=== PATIENT | male | born 1965 | race Caucasian/White ===

== ENCOUNTER 2023-10-19 09:13 | Outpatient (AMB) | payer BC, SELFPAY ==
--- NOTE | 2023-10-19 09:18 | AM.OFFWIN_ITS ---
Intake Vital Signs 10/19/23 09:19 Height 5 ft 11 in Weight 174 lb 4 oz BMI 24.3 BP 144/90 H Blood Pressure Location Lt brachial Position Sitting Pulse 87 Pulse Source Pulse Oximeter Temp 98.1 F Temp Source Temporal Artery Scan Pulse Oximetry (%) 97 Oxygen Delivery Method Room Air Intake Visit Reasons: Gastro issues Intake Note: Pt presents to the office today for c/o gastro concerns. Pt states he has had diarrhea for almost 6 weeks. Pt states he has about 7 bowel movements a day. He states he has had ulcers in the past. Pt states he had a colonoscopy about 2-3 years ago which he states came back normal. Pt denies any nausea or vomiting. Patient Tobacco Use Status: Current someday Tobacco user Allergies No Known Allergies Allergy (Verified 10/19/23 09:38) Medication List - Last Reconciled 10/19/23 by CALLY Hill- No Known Home Meds HPI HPI Comments History of Present Illness Details Diarrhea for 6 weeks, occurring about 7 x day This happened before in his 20's told of viral illness and cured on its own Nonbloody, no wt loss. Appetite normal. Colon 2-3 years ago. Not active with GI No vomiting, recent travel + stress Ab exposure - 1 time in the last year Abd feels uncomfortable Normal urination Denies fever, chills. etoh daily denies changes in etoh intake [employer] [facility] Social History Patient Tobacco Use Status: Current someday Tobacco user Review of Systems Const All systems reviewed & are unremarkable except as noted in HPI and below Physical Exam Vital Signs: Last Vital Signs Temp 98.1 F 10/19/23 09:19 Pulse 87 10/19/23 09:19 BP 144/90 H 10/19/23 09:19 Pulse Ox 97 10/19/23 09:19 Oxygen Delivery Method Room Air 10/19/23 09:19 BMI result Body Mass Index 24.3 Const Other: Awake alert oriented nontoxic Scleras nonicteric bilat Mucous membranes moist Abdomen soft, mildly tender to right lower quadrant without rebound, no hepatosplenomegaly, normoactive bowel sounds Assessment & Plan Assessment & Plan (1) Diarrhea: Code(s): R19.7 - Diarrhea, unspecified Qualifiers: Diarrhea type: unspecified type Plan: This note is constructed using voice recognition software. While every effort has been made to ensure accuracy in [employer], still errors may have been included Sometimes, these errors may affect the content or meaning of the given sentence . Total time spent caring for the patient today was 40 minutes. This includes time spent before the visit reviewing the chart, time spent during the visit, and time spent after the visit on documentation Orders: Orders Lipase Today R19.7 - Diarrhea, unspecified H pylori Ag Stool Today R19.7 - Diarrhea, unspecified CDiff Gene PCR Today R19.7 - Diarrhea, unspecified Comprehensive Met. Panel Today R19.7 - Diarrhea, unspecified Amylase Today R19.7 - Diarrhea, unspecified Patient Instructions: Plan: Check labs today (as of 1535 stool samples pending, normal lipase, amylase, elevated AST/ALT, Bili otherwise normal CMP). Stool samples ordered. If workup negative recommend using [id number] antidiarrheal and following up with primary care. If any of the labs are abnormal or positive will treat as appropriate. Encouraged to hydrate well and include a diet that is rich in sodium and potassium until results are back. Walk-In Care (Urgent Care): We Make it Easy Walk-in for urgent medical issues such as: ? Seasonal Allergies ? Insect Bites ? Cough ? Diarrhea ? Acute Asthma Attacks ? Back, Knee or Joint Pain ? Ear Infection ? Fever without a Rash ? Headaches ? Nausea ? [place], Rash or Skin Irritation ? Sore Throat ? Sports Physicals ? Vomiting Most insurances are accepted. Patients do not need to be part of the [facility] to seek care at the walk-in clinic. Locations [facility] , [place] [address] ? [phone] [facility] Walk-In Care in [place] provides services to ages 18 and over. Open Thursday-Thursday: 8 a.m. to 5 p.m. and Thursday: 9 a.m. to 3 p.m.* *Hours may vary due to staffing availability. To confirm Walk-In Care hours in [place], please call [phone]. [address] [facility], [place] [address] ? [phone] [facility] in [place] provides services to ages 12 and over. Open Thursday-Thursday: 8 a.m. to 5 p.m. Hours may vary due to staffing availability. To confirm Walk-In Care hours in [place], please call [phone]. LABORATORY SERVICES: [facility] ? Primary Location [address] [place] [address] Thursday through Thursday 6:00 AM ? 5:00 PM Thursday 7:00 AM ? 11:00 AM* [phone] The [facility] is centrally located near the front entrance of the [facility] for easy outpatient access. Convenient parking is provided for outpatients. *Hours may vary due to staffing availability. To confirm Laboratory hours for any location, please call [phone]. Offsite Location For your convenience, we offer offsite laboratory draw stations at the following locations: [address] [place] [address] ? [address], [address] Thursday through Thursday 7:30 AM ? 1:00 PM* [phone] *Hours may vary due to staffing availability. To confirm Laboratory hours for any location, please call [phone]. [place] ? [address] Thursday through Thursday 6:00 AM ? 3:30 PM* Thursday 6:30 AM ? 3 PM* [phone] *Hours may vary due to staffing availability. To confirm Laboratory hours for any location, please call [phone] [place] [address] Thursday through Thursday 7:30 AM ? 4:00 PM* [phone] *Hours may vary due to staffing availability. To confirm Laboratory hours for any location, please call [phone] [place] [address] Thursday through 9:00 AM ? 4:00 PM* *Hours may vary due to staffing availability. To confirm Laboratory hours for any location, please call [phone]. Appointments are not necessary. Walk-ins are welcome. Like all the departments throughout the [facility], our Lab undergoes frequent reviews to ensure the quality and accuracy of test results, and our staff takes special pride in its status as a nationally accredited facility. Patient Portal: ONE PATIENT. ONE RECORD. BETTER CARE. [facility] has a fully integrated, cutting- edge mobile electronic health information system that has revolutionized the way we care for our patients and manage our organization. This system improves communication and coordination enabling us to provide safe, higher-quality care, and an overall positive experience for staff and patients. Our first priority, as always, is to deliver the highest quality care possible. The system is running in the background supporting that priority. This portal is for all [facility] services and practices. If you are experiencing any technical difficulties with enrolling or logging into the Patient Portal please complete the [facility] Patient Portal Technical Support Form. [facility] now offers a new secure on-line interactive tool for patients to review their health information ? ?Patient Portal. This interactive web portal will enable patients and their families to take an active role in their care by providing easy, secure access to their health information via the internet. The Patient Portal provides patients with instant access to their health information, including laboratory results, medications, allergies, demographic information, visit history, and more. In addition to managing their own care, parents and health care proxies with authorized consent will appreciate the ability to access the records of those individuals for whom they provide care. Please note: if you wish to gain access (Proxy) to another patient?s portal, you will be required to come to the Medical Records Department in person at [facility]. Both the patient giving proxy access and the proxy will need to provide photo identification and complete the appropriate authorization. The Patient Portal also allows track their appointments online. The [facility] Patient Portal also saves patients time by allowing them to submit updates to their demographic and contact information prior to their visits. Portal email notifications will also alert patients to any new activity on their portal, such as test results and new appointments. In order to initially enroll in the [facility] Patient Portal, you will need to enter some required information including the following: * your [facility] Medical Record number * your personal home email address * name * date of Please note: In order to enroll in the [facility] Patient Portal, we need to have your email address on file in your electronic medical record. ?The email address needs to be specific for one person (yourself) in order for your Portal enrollment to be successful. ?You can update your email address in person with our Registration staff when you are registering for a hospital visit. ?Otherwise, you will need to come to the Health Information Management (Medical Records) Department at [facility]. ?We are open from Thursday ? Thursday from 7:30 a.m. ? 4:30 p.m. ?You will be required to present a photo id. Once you have successfully enrolled in the Patient Portal, you will receive a one-time user id and password for the Portal, sent to your email address. ?This will allow you to log into the Patient Portal within 99 hrs and reset your own logon id and password, and define personal security questions. ?Once your permanent login and password have been set, you can log into the [facility] Patient Portal at any time via the blue button above or from the Portal Logon button on any page of the [facility] website. [facility] and [facility] encourage all of our patients to enroll in Patient Portal as it presents a valuable opportunity for patients and their families to actively participate in their care and stay healthy Welcome to [facility]. ?We look forward to working with you. Coding Level of Care Code Est Pt Level 5 (66620) Diagnoses Diarrhea R19.7 Diarrhea type: unspecified type
[2023-10-19 09:19] VITALS: BP 144/90; PULSE 87; TEMP 36.7; O2SAT 97; BMI 24.3
== END 2023-10-19 09:48 | disposition home or self-care (01) ==
PROVIDERS: Visit Provider Nurse Practitioner Family
DX: R19.7 Diarrhea, unspecified (principal)
CPT/HCPCS: 99215

== ENCOUNTER 2023-10-19 10:01 | Outpatient (REF) | payer BC, SELFPAY ==
[2023-10-19 12:54] LABS: Alanine Aminotransferase 53 U/L (0-40); Albumin Level 4.6 g/dL (3.5-5.0); Alkaline Phosphatase 55 U/L (39-117); Amylase 70 U/L (28-100); Anion Gap 16 (12-20); Aspartate Amino Transferase 39 U/L (5-37); Bilirubin Total 1.4 mg/dL (0.0-1.0); Blood Urea Nitrogen 14 mg/dL (9-16); Calcium 9.8 mg/dL (8.4-10.2); Carbon Dioxide 28 mmol/L (22-29); Chloride 102 mmol/L (96-108); Estimated Glomerular Filt Rate > 60; Glucose Random 85 mg/dL (60-115); Lipase 16 U/L (8-78); Potassium 4.5 mmol/L (3.3-5.1); Sodium 141 mmol/L (135-145); Total Protein 7.7 g/dL (6.5-8.0)
== END 2023-10-19 10:02 | disposition home or self-care (01) ==
LOC: HO.WFDLDS 10:01
PROVIDERS: Visit Provider Nurse Practitioner Family
DX: R19.7 Diarrhea, unspecified (principal)
CPT/HCPCS: 36415; 80053; 82150; 83690

== ENCOUNTER 2023-10-20 | Outpatient (REF) | payer BC, SELFPAY ==
[2023-10-20 12:29] LABS: CDiff Gene PCR NEGATIVE (Negative)
== END 2023-10-20 00:01 | disposition home or self-care (01) ==
LOC: HO.LNP
PROVIDERS: Visit Provider Nurse Practitioner Family
DX: R19.7 Diarrhea, unspecified (principal)
CPT/HCPCS: 87338; 87493

== ENCOUNTER 2023-11-20 14:36 | Outpatient (AMB) | payer BC, SELFPAY ==
--- NOTE | 2023-11-20 14:42 | MHC.PC.OV ---
Vital Signs 11/20/23 14:43 Height 5 ft 11 in Weight 180 lb 2 oz BMI 25.1 BP 128/74 Blood Pressure Location Rt brachial Position Sitting Respiration 12 Pulse 61 Pulse Source Pulse Oximeter Pulse Oximetry (%) 98 Oxygen Delivery Method Room Air Intake Visit Reasons: Establish Care never been seen. Intake Note: Patient is here to establish care. Timber Sizer Required: No Accompanied by: Self / Same As Patient Allergies No Known Allergies Allergy (Verified 11/20/23 14:46) Tobacco use date assessed: 11/20/23 Dental Screening Dental Screen Date: 11/20/23 Did you have a dental visit in the last 12 months?: Yes Did you have a dental problem in the last 6 months where you did not have access to dental care?: No Was dental information given to patient?: Patient has dentist HPI HPI Comments History of Present Illness Details The patient is a 58 year old male with recent history of change in bowel movements presenting to establish care Now has had looser frequent stools for the past 10 weeks. Seen 4 weeks ago by colleague Diarrhea for 6 weeks, occurring about 7 x day. This happened before in his 20's told of viral illness and cured on its own. Nonbloody, no wt loss. Appetite normal. Colon 2-3 years ago. Not active with GI. No vomiting, recent travel. + stress. Ab exposure - 1 time in the last year.Abd feels uncomfortable. Normal urination. Denies fever, chills. etoh daily denies changes in etoh intake CMP with slight elevation in t bili and LFTs. Stool negative for H Pylori & C Diff Continues to have same symptoms. Says stool is loose, non bloody, not watery, it is can closing machine tender than usual, a few times daily. Says chronic urgency. Denies weight loss. Endorses a few episodes of night sweats. No fevers. Admits may colonoscopy longer than 2-3 years ago, said not long after 51, told 10 year repeat. Was told at time he had spastic colon and some internal hemorrhoids ROS see HPI PHYSICAL EXAM: GENERAL: Alert and oriented x 3. NAD EYES: EOMI. Anicteric. HENT: Moist mucous membranes. No scleral icterus. No cervical lymphadenopathy. LUNGS: Clear to auscultation bilaterally. CARDIOVASCULAR: Regular rate and rhythm. No murmur. No JVD. ABDOMEN: Soft, non-tender +bs EXTREMITIES: No edema. Non-tender. SKIN: No rashes or lesions. Warm. NEUROLOGIC: No focal neurological deficits. CN II-XII grossly intact PSYCHIATRIC: Cooperative. Appropriate mood and affect [facility] Medical History Peptic ulcer Inguinal hernia Surgical History History of hernia repair Family History Father Diabetes Social History Household Members: Spouse and Children Housing: House Are you a primary child care aide to a significant other at home: No Do you presently have visiting nurse or other home services: No Alcohol intake: current Alcohol intake frequency: 0-2 drinks per day Alcohol type: beer Patient Tobacco Use Status: Current someday Tobacco user Tobacco use type: Cigar e-Cigarette/Vaping Use: Never Used service: No Current occupational status: employed 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 1. Little interest or pleasure in doing things: not at all 2. Feeling down, depressed, or hopeless: not at all 3. Trouble falling or staying asleep, or sleeping too much: not at all 4. Feeling tired or having little energy: not at all 5. Poor appetite or overeating: not at all 6. Feeling bad about yourself - or that you are a failure or have let yourself or your family down: not at all 7. Trouble concentrating on things, such as reading the newspaper or watching television: not at all 8. Moving or speaking so slowly that other people could have noticed. Or the opposite - being so fidgety or restless that you have been moving around a lot more than usual: not at all 9. Thoughts that you would be better off or of hurting yourself in some way: not at all Total score: 0 Depression Screening Interpretation: Negative (neg) Depression Screening Done: Yes 56284 - PHQ-9 Billing: Yes Source: Developed by Drs. Gil Ward, Lenka Kapadia, Roberth Buchanan and colleagues, with an educational chava from [employer]. Thrive Questionnaire Date Thrive assessed: 11/20/23 I am a: Patient What is your living situation today?: I have a steady place to live Within the past 12 months, did the food you bought not last and you didn't have the money to get more?: Sometimes True Within the past 12 months, did you worry whether your food would run out before you got money to buy more?: Sometimes True Do you have trouble paying for medicines?: Yes Do you have trouble getting transportation to medical appointments?: No Do you have trouble paying your heating and electricity bill?: No Do you have trouble taking care of your child, family member or friend?: No Do you have trouble with day-to-day activities such as bathing, preparing meals, shopping, managing finances, etc.?: No Are you currently unemployed and looking for a job?: No Are you interested in more education?: No Please select the resources that you would like help with: None Currently or been in a relationship where the following occur: No concerns reported THRIVE Score: 2 AUDIT C Alcohol Use Questionnaire (AUDIT-C) 1. How often do you have a drink containing alcohol?: 4 or more times a week 2. How many drinks containing alcohol do you have on a typical day when you are drinking?: 1 or 2 3. How often do you have six or more drinks on one occasion?: Never Total Score: 4 ASHLEIGH-7 AMB Questionnaire ASHLEIGH-7 Date ASHLEIGH - 7 assessed: 11/20/23 Feeling nervous, anxious, or on edge: 0 = Not at all Not being able to stop or control worryin = Not at all Worrying too much about different things: 0 = Not at all Trouble relaxin = Not at all Being so restless that it is hard to sit still: 0 = Not at all Becoming easily annoyed or irritable: 0 = Not at all Feeling afraid as if something awful might happen: 0 = Not at all Total ASHLEIGH-7 score (0-4 normal; 5-9 mild; 10-14 moderate; 15-21 severe): 0 Source: Developed by Drs. Gil Ward, Lenka Kapadia, Roberth Buchanan and colleagues, with an educational chava from [employer]. ASHLEIGH-7 Assessment Billing ASHLEIGH-7 Assessment Tool: ASHLEIGH-7 Assessment 18722 Physical exam (Primary Care) Vital Signs: Last Vital Signs Pulse 61 11/20/23 14:43 Resp 12 11/20/23 14:43 BP 128/74 11/20/23 14:43 Pulse Ox 98 11/20/23 14:43 Oxygen Delivery Method Room Air 11/20/23 14:43 BMI result Body Mass Index 25.1 Tobacco/Smoking Status: Tobacco use Status Tobacco use date assessed 11/20/23 11/20/23 14:47 Patient Tobacco Use Status Current someday Tobacco 11/20/23 14:52 Tobacco use type Cigar 11/20/23 14:55 e-Cigarette/Vaping Use Never Used 11/20/23 14:52 PHQ-9: PHQ-9 Score PHQ-9: Total score 0 11/21/23 09:24 Depression Screening Interpretation: Negative (neg) Thrive Assessment: Date of Thrive Assessment Date Thrive assessed 11/20/23 11/20/23 14:55 Currently or been in a relationship where the following occur: No concerns reported Assessment and Plan Assessment & Plan (1) Encounter to establish care: Code(s): Z76.89 - Persons encountering health services in other specified circumstances Plan: 58 year old male presenting to establish care. past medical, surgical, social and family history reviewed. Ongoing liang in bowel habits. Start bentyl with meals. Obtain CT abd/pelvis with IV and oral contrast. Labs & stool studies. Referred to gastroenterology (2) Fecal urgency: Code(s): R15.2 - Fecal urgency (3) Diarrhea: Code(s): R19.7 - Diarrhea, unspecified Qualifiers: Diarrhea type: unspecified type Qualified Code(s): R19.7 - Diarrhea, unspecified Orders: Orders Bilirubin Total 11/20/23 R15.2 - Fecal urgency, R19.7 - Diarrhea, unspecified, R61 - Generalized hyperhidrosis Comprehensive Met. Panel 11/20/23 R15.2 - Fecal urgency, R19.7 - Diarrhea, unspecified, R61 - Generalized hyperhidrosis Calprotectin, Fecal 11/20/23 R15.2 - Fecal urgency, R19.7 - Diarrhea, unspecified, R61 - Generalized hyperhidrosis CT abdomen w IV con 11/20/23 R15.2 - Fecal urgency, R19.7 - Diarrhea, unspecified, R61 - Generalized hyperhidrosis, Z76.89 - Persons encountering health services in other specified circumstances Hepatitis B,C Profile 11/20/23 R15.2 - Fecal urgency, R19.7 - Diarrhea, unspecified, R61 - Generalized hyperhidrosis Complete Blood Count Auto Diff 11/20/23 R15.2 - Fecal urgency, R19.7 - Diarrhea, unspecified, Z76.89 - Persons encountering health services in other specified circumstances IRON PROFILE 11/20/23 R15.2 - Fecal urgency, R19.7 - Diarrhea, unspecified, Z76.89 - Persons encountering health services in other specified circumstances Erythrocyte Sedimentation Rate 11/20/23 R15.2 - Fecal urgency, R19.7 - Diarrhea, unspecified, R61 - Generalized hyperhidrosis Bilirubin Direct 11/20/23 R15.2 - Fecal urgency, R19.7 - Diarrhea, unspecified, R61 - Generalized hyperhidrosis Pancreatic Elastase-1 11/20/23 R15.2 - Fecal urgency, R19.7 - Diarrhea, unspecified, R61 - Generalized hyperhidrosis Giardia Ag Stool EIA Today R15.2 - Fecal urgency, R19.7 - Diarrhea, unspecified Referrals Gastroenterology Referral R15.2 - Fecal urgency, R19.7 - Diarrhea, unspecified, R61 - Generalized hyperhidrosis Medications: New dicyclomine with meals 10 mg PO QID 360 caps 3RF 90 days Coding Level of Care Code Est Pt Level 5 (96666) Complex EM visit Add On G2211 Diagnoses Encounter to establish care Z76.89 Fecal urgency R15.2 Diarrhea, unspecified type R19.7 Diarrhea type: unspecified type Additional Codes ASHLEIGH-7 Assessment Billing - ASHLEIGH-7 Assessment Tool: ASHLEIGH-7 Assessment 56296 ([id number])
[2023-11-20 14:43] VITALS: BP 128/74; PULSE 61; RESP 12; O2SAT 98; BMI 25.1
== END 2023-11-20 15:37 | disposition home or self-care (01) ==
PROVIDERS: PCP Internal Medicine; Visit Provider Internal Medicine
DX: R15.2 Fecal urgency (principal); R19.7 Diarrhea, unspecified; Z76.89 Persons encountering health services in other specified circumstances
CPT/HCPCS: 99214

== ENCOUNTER 2023-11-20 15:47 | Outpatient (REF) | payer BC, SELFPAY ==
[2023-11-20 17:35] LABS: MANUAL DIFF FLAG NO
[2023-11-20 17:46] LABS: Basophils Absolute Auto 0.1 X10*3/uL (0.0-0.2); Basophils Percent Auto 0.9 % (0-2); Eosinophils Absolute Auto 0.2 X10*3/uL (0.0-0.4); Eosinophils Percent Auto 3.8 % (0-4); Hemoglobin 14.5 g/dl (14.0-18.0); Imm Gran Abs Auto 0.02 X10*3/uL (0.00-0.03); Imm Gran Pct Auto 0.3 % (0.0-0.4); Lymphocytes Absolute Auto 1.1 X10*3/uL (1.2-4.9); Lymphocytes Percent Auto 17.1 % (20-40); Mean Corpuscular HGB Conc 33.7 g/dl (31.0-36.0); Mean Corpuscular Hemoglobin 30.9 pg (27.0-33.0); Mean Corpuscular Volume 91.5 fL (80.0-98.0); Mean Platelet Volume 9.2 fL (9.4-12.4); Monocytes Absolute Auto 0.7 X10*3/uL (0.1-1.2); Monocytes Percent Auto 10.2 % (2-11); Neutrophils Absolute Auto 4.3 x10*3/uL (2.0-8.3); Neutrophils Percent Auto 67.7 % (45-73); Platelet Count 219 X10*3/uL (160-400); Red Cell Distribution Width 12.1 % (11.0-16.0); White Blood Count 6.4 X10*3/uL (4.8-10.8)
[2023-11-20 18:11] LABS: Alanine Aminotransferase 40 U/L (0-40); Albumin Level 4.5 g/dL (3.5-5.0); Alkaline Phosphatase 60 U/L (39-117); Anion Gap 15 (12-20); Aspartate Amino Transferase 30 U/L (5-37); Bilirubin Direct 0.3 mg/dL (0.0-0.5); Bilirubin Total 0.9 mg/dL (0.0-1.0); Blood Urea Nitrogen 15 mg/dL (9-16); Calcium 9.7 mg/dL (8.4-10.2); Carbon Dioxide 24 mmol/L (22-29); Chloride 105 mmol/L (96-108); Estimated Glomerular Filt Rate > 60; Glucose Random 75 mg/dL (60-115); Iron 92 mcg/dL (45-160); Percent Iron Saturation 32 % (15-50); Potassium 3.7 mmol/L (3.3-5.1); Sodium 140 mmol/L (135-145); Total Iron Binding Capacity 286 mcg/dL (228-428); Total Protein 7.1 g/dL (6.5-8.0); Unsaturated Iron Binding 194 ug/dL
[2023-11-20 18:24] LABS: Erythrocyte Sedimentation Rate 2 MM/HR (0-15)
[2023-11-20 18:29] LABS: HBS Num1 0.57 mIU/mL (0-7.99); HBc Num1 0.12 S/CO (0.00-0.79); HBsAGNum1 0.29 S/CO (0.00-0.99); Hepatitis B Core Antibody Nonreactive (Nonreactive); Hepatitis B Surface Antigen Negative (Negative); ~HepC Num1 0.21 S/CO (0.00-0.79); ~Hepatitis B Surface Antibody NONREACTIVE (Nonreactive); ~Hepatitis C Antibody Nonreactive (Nonreactive)
== END 2023-11-20 15:48 | disposition home or self-care (01) ==
LOC: HO.WFDLDS 15:47
PROVIDERS: Visit Provider Internal Medicine
DX: R15.2 Fecal urgency (principal); R19.7 Diarrhea, unspecified; R61 Generalized hyperhidrosis; Z76.89 Persons encountering health services in other specified circumstances
CPT/HCPCS: 36415; 80053; 82248; 83540; 85025; 85652; 86704; 86706; 86803; 87340

== ENCOUNTER 2023-12-02 11:24 | Outpatient (REF) | payer BC, SELFPAY ==
[2023-12-10 22:09] LABS: Pancreatic Elastase-1 >500 mcg/g
[2023-12-11 00:38] LABS: Calprotectin, Fecal 24 mcg/g
== END 2023-12-02 11:25 | disposition home or self-care (01) ==
LOC: HO.LNP 11:24
PROVIDERS: Visit Provider Internal Medicine
DX: R15.2 Fecal urgency (principal); R19.7 Diarrhea, unspecified; R61 Generalized hyperhidrosis
CPT/HCPCS: 82656; 83993

== ENCOUNTER 2023-12-08 08:23 | Outpatient (AMB) | payer BC, SELFPAY ==
[2023-12-08 08:28] VITALS: BP 140/86; PULSE 68; RESP 12; O2SAT 99; BMI 24.8
--- NOTE | 2023-12-08 08:28 | MHC.PC.OV ---
Vital Signs 12/08/23 08:28 Height 5 ft 11 in Weight 178 lb BMI 24.8 BP 140/86 H Blood Pressure Location Lt brachial Position Sitting Respiration 12 Pulse 68 Pulse Source Pulse Oximeter Pulse Oximetry (%) 99 Oxygen Delivery Method Room Air Intake Visit Reasons: PHYSICAL Intake Note: Patient is here for a physical. Button And Buckle Maker Required: No Accompanied by: Self / Same As Patient Allergies No Known Allergies Allergy (Verified 12/08/23 08:32) Tobacco use date assessed: 11/20/23 Dental Screening Dental Screen Date: 11/20/23 HPI HPI Comments History of Present Illness Details The patient is a 58 year old male with history of frequent loose stools, borderline BP presenting for annual exam Now has had looser frequent stools for the past 13 weeks. Seen initially by colleague Diarrhea for 6 weeks, occurring about 7 x day. This happened before in his 20's told of viral illness and cured on its own. Nonbloody, no wt loss. Appetite normal. Colon 2-3 years ago. Not active with GI. No vomiting, recent travel. + stress. Ab exposure - 1 time in the last year.Abd feels uncomfortable. Normal urination. Denies fever, chills. etoh daily denies changes in etoh intake Initial CMP with slight elevation in t bili and LFTs-these normalized. Stool negative for H Pylori & C Diff Continues to have same symptoms. Says stool is loose, non bloody, not watery, it is care transitions nurse than usual, a few times daily. Says chronic urgency. Denies weight loss. Endorses a few episodes of night sweats. No fevers. Admits may colonoscopy longer than 2-3 years ago, said not long after 51, told 10 year repeat. Was told at time he had spastic colon and some internal hemorrhoids Has referral to GI pending. Some stool studies still pending Tdap today ROS see HPI PHYSICAL EXAM: GENERAL: Alert and oriented x 3. NAD EYES: EOMI. Anicteric. HENT: Moist mucous membranes. No scleral icterus. No cervical lymphadenopathy. LUNGS: Clear to auscultation bilaterally. CARDIOVASCULAR: Regular rate and rhythm. No murmur. No JVD. ABDOMEN: Soft, non-tender +bs : Normal penis. No palpable scrotal, testicular masses EXTREMITIES: No edema. Non-tender. SKIN: No rashes or lesions. Warm. NEUROLOGIC: No focal neurological deficits. CN II-XII grossly intact PSYCHIATRIC: Cooperative. Appropriate mood and affect [facility] Medical History Peptic ulcer Inguinal hernia Surgical History History of hernia repair Family History Father Diabetes Social History Household Members: Spouse and Children Housing: House Are you a primary pediatric critical care nurse to a significant other at home: No Do you presently have visiting nurse or other home services: No 75 years or older and lives alone: No Alcohol intake: current Alcohol intake frequency: 0-2 drinks per day Alcohol type: beer Patient Tobacco Use Status: Current someday Tobacco user Tobacco use type: Cigar e-Cigarette/Vaping Use: Never Used service: No Current occupational status: employed 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 Gil Ward, Lenka Kapadia, Roberth Buchanan and colleagues, with an educational chava from [employer]. Physical exam (Primary Care) Vital Signs: Last Vital Signs Pulse 68 12/08/23 08:28 Resp 12 12/08/23 08:28 BP 140/86 H 12/08/23 08:28 Pulse Ox 99 12/08/23 08:28 Oxygen Delivery Method Room Air 12/08/23 08:28 BMI result Body Mass Index 24.8 Tobacco/Smoking Status: Tobacco use Status Tobacco use date assessed 11/20/23 12/08/23 08:33 Patient Tobacco Use Status Current someday Tobacco 12/08/23 08:33 Tobacco use type Cigar 12/08/23 08:33 e-Cigarette/Vaping Use Never Used 12/08/23 08:33 Thrive Assessment: Date of Thrive Assessment Date Thrive assessed 11/20/23 12/08/23 08:33 Assessment and Plan Assessment & Plan (1) Physical exam: Code(s): Z00.00 - Encounter for general adult medical examination without abnormal findings Plan: Preventive measures for age discussed Tdap administered Watch sodium intake. Referral to GI pending PSA ordered (2) Diarrhea: Code(s): R19.7 - Diarrhea, unspecified Qualifiers: Diarrhea type: unspecified type Qualified Code(s): R19.7 - Diarrhea, unspecified (3) Cyst, dermoid, arm: Code(s): D36.7 - Benign neoplasm of other specified sites Orders: Orders Prostate Specific Antigen Today Z12.5 - Encounter for screening for malignant neoplasm of prostate Referrals General Surgery Referral D36.7 - Benign neoplasm of other specified sites Coding Level of Care Code Est Pt Prev Care 40-64y(74651) Diagnoses Physical exam Z00.00 Diarrhea, unspecified type R19.7 Diarrhea type: unspecified type Cyst, dermoid, arm D36.7
== END 2023-12-08 09:17 | disposition home or self-care (01) ==
PROVIDERS: PCP Internal Medicine; Visit Provider Internal Medicine
DX: Z00.00 Encounter for general adult medical examination without abnormal findings (principal); R19.7 Diarrhea, unspecified; D36.7 Benign neoplasm of other specified sites; Z23 Encounter for immunization
CPT/HCPCS: 90471; 90715; 99396

== ENCOUNTER 2023-12-08 09:16 | Outpatient (REF) | payer BC, SELFPAY ==
[2023-12-08 12:30] LABS: Prostate Specific Antigen 0.25 ng/mL (<0.05-4.0)
[2023-12-08 13:09] LABS: Bilirubin Total 1.2 mg/dL (0.0-1.0)
== END 2023-12-08 09:17 | disposition home or self-care (01) ==
LOC: HO.WFDLDS 09:16
PROVIDERS: Visit Provider Internal Medicine
DX: R15.2 Fecal urgency (principal); R19.7 Diarrhea, unspecified; R61 Generalized hyperhidrosis; Z12.5 Encounter for screening for malignant neoplasm of prostate
CPT/HCPCS: 36415; 82247; 84153

== ENCOUNTER 2023-12-15 14:25 | Outpatient (REF) | payer BC, SELFPAY | END 2023-12-15 14:26 | disposition home or self-care (01) | LOC: HO.LNP 14:25 | PROVIDERS: Visit Provider Internal Medicine | DX: R19.7 Diarrhea, unspecified (principal); R15.2 Fecal urgency | CPT/HCPCS: 87329 ==

== ENCOUNTER 2023-12-22 11:10 | Outpatient (REF) | payer BC, SELFPAY ==
[2023-12-22 15:03] LABS: Anion Gap 12 (12-20); Blood Urea Nitrogen 17 mg/dL (9-16); Calcium 9.7 mg/dL (8.4-10.2); Carbon Dioxide 25 mmol/L (22-29); Chloride 105 mmol/L (96-108); Estimated Glomerular Filt Rate > 60; Glucose Random 104 mg/dL (60-115); Potassium 4.3 mmol/L (3.3-5.1); Sodium 138 mmol/L (135-145)
== END 2023-12-22 11:11 | disposition home or self-care (01) ==
LOC: HO.WFDLDS 11:10
PROVIDERS: Visit Provider Internal Medicine
DX: R22.31 Localized swelling, mass and lump, right upper limb (principal); D36.7 Benign neoplasm of other specified sites; R15.2 Fecal urgency; R19.7 Diarrhea, unspecified
CPT/HCPCS: 11401; 36415; 80048

== ENCOUNTER 2023-12-22 14:21 | Outpatient (AMB) | payer BC, SELFPAY ==
--- NOTE | 2023-12-22 14:22 | MHC.OFFVIS ---
Vital Signs 12/22/23 14:28 Height 5 ft 11 in Weight 176 lb BMI 24.5 BP 136/100 H Blood Pressure Location Lt brachial Position Sitting Pulse 86 Intake Visit Reasons: Cyst~ Rt arm Intake Note: Patient referred by pcp Dr. Santiago for cyst on rt arm. Present for 1-2yrs. Patient c/o: painful. No hx of skin ca. 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 He has had this indeterminate time. It is becoming more symptomatic and would like to have removed. He has no such lesions elsewhere. Chart was reviewed and patient evaluate [facility] Medical History Peptic ulcer Inguinal hernia Surgical History History of hernia repair Family History Father Diabetes Social History Household Members: Spouse and Children Housing: House Are you a primary career technical supervisor to a significant other at home: No Do you presently have visiting nurse or other home services: No 75 years or older and lives alone: No Alcohol intake: current Alcohol intake frequency: 0-2 drinks per day Alcohol type: beer Patient Tobacco Use Status: Current someday Tobacco user Tobacco use type: Cigar e-Cigarette/Vaping Use: Never Used service: No Current occupational status: employed 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 Tentative to palpation. No other gross pathology demonstrated. No axillary adenopathy. Extremities grossly neurovascularly intact Office Procedures Excision Details: Risks, benefits alternatives of excision of right forearm mass reviewed the patient and included but not limited to bleeding, infection, recurrence, numbness, pain, scarring the patient wished to proceed. All questions answered. Consent site. After appropriate positioning, patient underwent % lidocaine and Betadine prep. Longitudinal incision was made over the cyst/mass of the dorsal mid right forearm and uneventful enucleation of the 1 cm x 1 cm mass was performed and specimen sent to pathology. Wound was irrigated, secured hemostasis, and closed using interrupted inverted dermal 3-0 Vicryl sutures followed by Steri-Strips and sterile dressings. Patient tolerated procedure well. 20356-[id number]/arms/legs 0.6-1cm Procedure code (CPT) selection complete Office Meds lidocaine 1 %-epinephrine 1:100,000 injection solution Performing Provider: Jamar Shin MD Performing Location: [facility] [place] General Surgeons Administered by: Jamar Shin MD on 12/22/23 14:47 Dose Route Admin Location Dispensed Lot Number Expiration Date [facility] [place] [employer] 7 mL Infiltration 7 mL Assessment & Plan Assessment & Plan (1) Cyst, dermoid, arm: Code(s): D36.7 - Benign neoplasm of other specified sites Category: Surgical Plan: Patient has been given local instructions including avoiding strenuous activities, may shower in 2 days removing only outside dressing leaving Steri-Strips intact, Tylenol and Motrin p.r.n. pain, ice to the wound periodically, and will follow-up as directed or p.r.n.. All questions answered Orders: Orders AMB Excision Today D36.7 - Benign neoplasm of other specified sites Medications: New lidocaine-epinephrine 1 %-1:100,000 7 mL Infiltration ONCE 30 mL 0RF D36.7 - Benign neoplasm of other specified sites Coding Level of Care Code New Pt Level 5 (40431) Diagnoses Cyst, dermoid, arm D36.7 CPT Codes Trunk/Arms/Legs - CPT: 32527-[id number]/arms/legs 0.6-1cm ([id number])
[2023-12-22 14:28] VITALS: BP 136/100; PULSE 86; BMI 24.5
== END 2023-12-22 14:47 | disposition home or self-care (01) ==
PROVIDERS: PCP Internal Medicine; Referring Provider Internal Medicine; Visit Provider Surgery
DX: D18.01 Hemangioma of skin and subcutaneous tissue (principal)
CPT/HCPCS: 11401; 99204

== ENCOUNTER 2023-12-22 14:45 | Outpatient (REF) | payer BC, SELFPAY | END 2023-12-22 14:46 | disposition home or self-care (01) | LOC: HO.LNP 14:45 | PROVIDERS: Visit Provider Surgery | DX: R15.2 Fecal urgency (principal); R19.7 Diarrhea, unspecified | CPT/HCPCS: 88304; 88305 ==

== ENCOUNTER 2024-01-19 15:54 | Outpatient (REF) | payer BC, SELFPAY ==
[2024-01-19 18:52] LABS: Anion Gap 10 (12-20); Blood Urea Nitrogen 20 mg/dL (9-16); Calcium 9.4 mg/dL (8.4-10.2); Carbon Dioxide 26 mmol/L (22-29); Chloride 107 mmol/L (96-108); Estimated Glomerular Filt Rate > 60; Glucose Random 117 mg/dL (60-115); Potassium 4.1 mmol/L (3.3-5.1); Sodium 139 mmol/L (135-145)
== END 2024-01-19 15:55 | disposition home or self-care (01) ==
LOC: HO.WFDLDS 15:54
PROVIDERS: Visit Provider Internal Medicine
DX: R10.9 Unspecified abdominal pain (principal)
CPT/HCPCS: 36415; 80048

== ENCOUNTER 2024-01-21 11:21 | Outpatient (REF) | payer BC, SELFPAY ==
--- NOTE | ~2024-01-21 | CT_ITS ---
EXAMINATION: CT ABDOMEN AND PELVIS WITH CONTRAST CLINICAL INFORMATION: Fecal emergency COMPARISON: None available. TECHNIQUE: Multidetector volumetric images were obtained from the superior aspect of the liver through the pubic symphysis following administration 85 mL of Omnipaque 350 intravenous contrast. Sagittal and coronal reformatted images were obtained on the technologist's workstation. Oral contrast: [address] examination was performed using dose optimization techniques as appropriate, variously including the following: *Automated exposure control *Adjustment of mA and/or kV according to patient size (this includes techniques or standardized protocols for targeted exams where dose is matched to indication/reason for exam; i.e. extremities or head) *Use of iterative reconstruction technique DLP: 369 mGy-cm FINDINGS: Submitted for interpretation on March 18, 2024. LIVER, GALLBLADDER, AND BILIARY TREE: Liver measures 16 cm. Decreased enhancement pattern. No focal mass. Portal vein and hepatic veins are patent. Intrahepatic portion of the IVC is patent. No intrahepatic or extrahepatic biliary ductal dilatation. Gallbladder is contracted. No pericholecystic fluid collection or gallbladder wall thickening. PANCREAS: No focal pancreatic mass. No peripancreatic fluid collection. No main pancreatic ductal dilatation. SPLEEN: 11 cm. No focal mass. ADRENAL GLANDS: No nodular lesions. KIDNEYS AND URETERS: Normal enhancement pattern without renal mass. No hydronephrosis. BLADDER: Wall thickening in the anterior lateral wall. GASTROINTESTINAL TRACT: No intestinal obstruction pattern. Abundant stool within the large intestine. Appendix is normal. No pneumatosis intestinalis. No ascites. No pneumoperitoneum. ABDOMINAL WALL: No gross hernia. LYMPH NODES: No gross lymphadenopathy, retroperitoneal or mesenteric. VASCULAR: No aneurysm or dissection, abdominal aorta. PELVIC VISCERA: Calcifications in the inferior prostate gland region. No enlargement of the seminal vesicles or the prostate gland. OSSEOUS STRUCTURES: Degenerative changes in the coxofemoral joints. 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 Multilevel spondylosis more conspicuous at L5-S1. Nonspecific patchy groundglass in the periphery of the right middle lobe.. CT/CT abdomen pelvis w IV con IMPRESSION: Abundant stool without intestinal obstruction pattern. Nonspecific thickening of the urinary bladder wall which could be artifactual. Inflammatory versus infectious processes cannot be excluded. Recommend direct inspection. Hepatomegaly and steatosis. Fleischner guidelines were followed. Electronically signed by: Quique Quezada MD 03/18/2024 02:34 PM EST RP
[2024-01-21] MEDS: Barium Sulfate Oral (Vanilla) 450 ML ORAL.SUSP 900 ML PO (15:47)
[2024-01-21] MEDS: iohexoL 350 MG/ML 100 ML INFUS..BTL 85 ML IV (15:47)
== END 2024-01-21 11:22 | disposition home or self-care (01) ==
LOC: HO.CT 11:21
PROVIDERS: PCP Internal Medicine; Visit Provider Internal Medicine
DX: R15.2 Fecal urgency (principal); R19.7 Diarrhea, unspecified; R61 Generalized hyperhidrosis
CPT/HCPCS: 74177; Q9967

== ENCOUNTER → 2024-01-21 11:23 | Outpatient (BNV) | payer BC, SELFPAY | PROVIDERS: PCP Internal Medicine; Visit Provider Radiology Diagnostic Radiology | DX: R15.2 Fecal urgency (principal) | CPT/HCPCS: 74177 ==

== ENCOUNTER 2024-04-11 14:51 | Outpatient (AMB) | payer BC, SELFPAY ==
--- NOTE | 2024-04-11 15:09 | A.OFFVIS_ITS ---
Vital Signs 04/11/24 15:20 Height 5 ft 11 in Weight 183 lb 4 oz BMI 25.6 BP 154/91 H Blood Pressure Location Lt brachial Position Sitting Pulse 68 Intake Visit Reasons: Unspecified abdominal pain Intake Note: This patient presents for Unspecified abdominal pain. Pt c/o; has had gastrointestinal issue and had a CT scan done, onset 08/2023 experiencing , diarrhea and reflux, denies nausea, vomit, constipation, is sched to see [facility] 05[place]2401/21/2024: Abd/pelvis CT Song Plugger Required: No Accompanied by: Self / Same As Patient Allergies No Known Allergies Allergy (Verified 04/11/24 15:14) Medication List - Last Reconciled 04/11/24 by Brad Santa MD dicyclomine 10 mg PO QID 90 days HPI HPI Unspecified abdominal pain: Details: 58-year-old male referred for question of ?obstruction?. He says that he had seen his primary care physician earlier this year. His main problem at that time was he has frequent bowel movements. He says it would have 5 loose bowel movements every day. He says this continues to go on. He says he has this urgency as well with his bowel movements. He was sent for a CT scan and he had this done in December,. Unfortunately, he says that he did not know about any of the results from this. He said that some time before , he was told to see a surgeon because of the question of an ?obstruction?. He says he has had no nausea or vomiting. He denies any abdominal pain. He says he is healthy otherwise. He also says that he had a colonoscopy in [facility] 7 years ago. He says that he was told he had a ?spastic colon? and that his colon was tortuous. [facility] Medical History Peptic ulcer Inguinal hernia Surgical History History of hernia repair Family History Father Diabetes Social History Household Members: Spouse and Children Housing: House Are you a primary career technical education teacher to a significant other at home: No Do you presently have visiting nurse or other home services: No 75 years or older and lives alone: No Alcohol intake: current Alcohol intake frequency: 0-2 drinks per day Alcohol type: beer Patient Tobacco Use Status: Current someday Tobacco user Tobacco use type: Cigar e-Cigarette/Vaping Use: Never Used service: No Current occupational status: employed 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 Current occupational exposures/hazards: No Cognitive needs: No Hearing needs: No Vision needs: No Review of Systems Const Denies chills and Denies fever(s) Card Denies chest pain, Denies dyspnea and Denies dyspnea on exertion Resp Denies cough, Denies dyspnea and Denies dyspnea on exertion GI Denies hematochezia, Denies change in bowel habits and Reports diarrhea Denies hematuria and Denies difficulty urinating Musc Denies back pain and Denies limited range of motion Neuro Denies focal weakness and Denies convulsions Psych Denies depression and Denies mood swings Physical Exam Vital Signs: Last Vital Signs Pulse 68 04/11/24 15:20 BP 154/91 H 04/11/24 15:20 BMI result Body Mass Index 25.6 Const General: comfortable and no acute distress Orientation/consciousness: patient oriented x3 Neck Neck: Yes no lymphadenopathy Resp Auscultation: clear to auscultation bilaterally Cardio Rhythm: regular rhythm GI Palpation (GI): Soft to palpation, nontender and no guarding Neuro General: patient oriented x3 Assessment & Plan Assessment & Plan (1) Diarrhea: Code(s): R19.7 - Diarrhea, unspecified Category: Medical Qualifiers: Diarrhea type: unspecified type Qualified Code(s): R19.7 - Diarrhea, unspecified Plan: His main complaint is actually diarrhea. He describes this about 5 bowel movements every day, loose and very consistent. He describes urgency as well. Overall findings actually suggest IBS. I have reviewed his CAT scan from December,. This does not reveal any obstruction. The GI tract appears to be unremarkable I assured him about this findings He says now that he is actually supposed to see a gasfitter in 05/31/2024. I told him that if he has problems with this appointment, he can call the office so we can assist him. Currently he does not have any surgical issues. Coding Level of Care Code New Pt Level 3 (38802) Diagnoses Diarrhea, unspecified type R19.7 Diarrhea type: unspecified type
[2024-04-11 15:20] VITALS: BP 154/91; PULSE 68; BMI 25.6
== END 2024-04-11 15:37 | disposition home or self-care (01) ==
PROVIDERS: PCP Internal Medicine; Referring Provider Internal Medicine; Visit Provider Surgery
DX: R19.7 Diarrhea, unspecified (principal)
CPT/HCPCS: 99203

== ENCOUNTER 2024-04-13 10:06 | Outpatient (AMB) | payer BC, SELFPAY ==
[2024-04-13 10:14] VITALS: BP 153/91; PULSE 79; BMI 25.5
--- NOTE | 2024-04-13 10:14 | A.OFFVIS_ITS ---
Vital Signs 04/13/24 10:14 Height 5 ft 11 in Weight 182 lb 8.684 oz BMI 25.5 BP 153/91 H Blood Pressure Location Rt brachial Position Sitting Pulse 79 Intake Visit Reasons: Diarrhea, abd pain. Initial. R/S per cancellation Intake Note: New patient in office today for diarrhea and abdominal pain. CC: Patient reports that he began to have diarrhea back in August, frequency with urgency but not abdominal pain. All blood work came back negative per patient and he had a CT scan done as well. Patient reports x5 loose BMs daily. Last colonoscopy was done when he was 51 at [facility] and it was normal per patient. Shaker Plate Operator Required: No Accompanied by: Self / Same As Patient Allergies No Known Allergies Allergy (Verified 04/13/24 10:26) HPI HPI Diarrhea, abd pain. Initial. R/S per cancellation: Details: 58-year-old male here for initial evaluation of diarrhea and abdominal pain. He is referred by Arielle aBker. PMX Night sweats Fecal urgency/diarrhea History of peptic ulcer * SURGICAL HISTORY Inguinal hernia repair Scaphoid ligament replacement Tendon repair left foot childhood * ALLERGIES: NKDA * [facility] LABS: Laboratory Tests 10/20/23 11/20/23 12/02/23 04:30 15:49 08:07 WBC 6.4 Hgb 14.5 Hct 43.0 Plt Count 219 Estimated GFR Total Bilirubin 0.9 Direct Bilirubin 0.3 AST 30 ALT 40 Alkaline Phosphatase 60 Stool Calprotectin 24 Stool Pancreat Elastase >500 Stl Giardia Antigen C. difficile Tox B Gene NEGATIVE 12/08/23 12/15/23 01/19/24 09:19 04:30 14:35 WBC Hgb Hct Plt Count Estimated GFR > 60 Total Bilirubin 1.2 H Direct Bilirubin AST ALT Alkaline Phosphatase Stool Calprotectin Stool Pancreat Elastase Stl Giardia Antigen negative C. difficile Tox B Gene TODAY'S VISIT Onset 08/2023 with diarrhea 5 times a day loose with fecal urgency. He was going through a very stressful life event at the time. He presented to his PCP and they did some tests and labs and CT. There were no new medicines or diert changes prior to the onset of sx. No abd pain, no N/V or fevers, no known sick contacts. His BM's at baseline were normal and formed. He had a negative scope 10 years ago at [facility] and he was told he had a torturous colon. No known FHX of similar diarrheal sx. He has used bentyl w/o any good effect and imodium that seemed to work well when he took 2 for going out. Will get more extensive stool testing, chem panel r/t elevated bili, food allergy testing. Take imodium scheduled. ROV keep 2/4 appt already scheduled. [facility] Medical History (Updated 04/13/24 @ 11:07 by CLYDE Ch) Abdominal pain Encounter to establish care Screening for prostate cancer Physical exam Peptic ulcer Inguinal hernia Surgical History (Updated 04/13/24 @ 10:21 by Jonatan Graff [facility]) H/O colonoscopy History of hernia repair Family History Father Diabetes Social History Household Members: Spouse and Children Housing: House Are you a primary client care specialist to a significant other at home: No Do you presently have visiting nurse or other home services: No 75 years or older and lives alone: No Alcohol intake: current Alcohol intake frequency: 0-2 drinks per day Alcohol type: beer Patient Tobacco Use Status: Current someday Tobacco user Tobacco use type: Cigar e-Cigarette/Vaping Use: Never Used service: No Current occupational status: employed 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 [employer] Current occupational exposures/hazards: No Cognitive needs: No Hearing needs: No Vision needs: No Review of Systems Const Denies fatigue, Denies fever(s), Denies night sweats, Denies poor appetite and Denies weight loss ENT Reports Normal hearing present, Denies dental pain, Denies dysphagia, Denies hearing loss, Denies mouth pain, Denies odynophagia, Denies throat swelling, Denies tongue swelling and Reports other (Dentition adequate) Card Reports no additional complaints Resp Reports no additional complaints GI Details: Fecal urgency Denies abdominal pain, Denies melena, Denies bloating, Denies hematochezia, Denies constipation, Denies GI cramping, Denies dysphagia, Denies excessive flatus, Denies early satiety, Denies heartburn, Reports diarrhea, Denies nausea, Denies odynophagia, Denies vomiting and Denies hematemesis Skin/Breast Denies pruritus, Denies lesions, Denies rash and Denies jaundice Neuro Reports Normal hearing present and Denies Abnormal speech present Psych Reports anxiety Endo Denies fatigue Aller/Immun Denies throat swelling and Denies tongue swelling Physical Exam Vital Signs: Last Vital Signs Pulse 79 04/13/24 10:14 BP 153/91 H 04/13/24 10:14 BMI result Body Mass Index 25.5 Const General: cooperative, no acute distress, well developed and well groomed Nutritional Appearance: average body habitus and well nourished Orientation/consciousness: oriented to person, oriented to place and oriented to time Limitations: No language barrier HEENT Head: Yes normocephalic and Yes atraumatic Eyes General: appearance normal, both eyes and all related structures Pupils: Equal, round and reactive pupils present Neck Neck: Yes normal visual inspection and Yes no lymphadenopathy Thyroid: Thyroid normal Resp Effort & Inspection: normal respiratory effort and able to speak in complete sentences Auscultation: clear to auscultation bilaterally Cardio Rate: regular rate Rhythm: regular rhythm Heart sounds: Normal, physiologic split S2 sound present Peripheral pulses: radial pulses present and posterior tibial pulses present GI Inspection: No distended and No Abdominal panniculus present Palpation (GI): Soft to palpation, nontender, no guarding, not rigid and No hepatosplenomegaly present Percussion: Yes normal to percussion Auscultation: no bruits, no high pitched sounds and Hyperactive bowel sounds present Rectal Exam - Male: Yes deferred Skin General skin exam: no rashes or lesions noted, turgor normal, skin not dry, no jaundice, No spider nevi and no striae Rashes: no rashes Nails: normal Neuro General: oriented to person, oriented to place and oriented to time Cranial nerves: Yes Equal, round and reactive pupils present and Yes Normal hearing present Speech: No Abnormal speech present Extrem General: Yes normal to inspection, No clubbing, No cyanosis and No edema Psych Appearance: grossly normal and well kempt Mental Status: mental status grossly normal Speech and movement: Normal speech and movement present Affect: normal affect Attitude: cooperative Thought process: Normal thought process present and not confabulating Thought content: Normal thought content present Insight: Good insight present (Psych) Judgement: Good judgement present (Psych) Assessment & Plan Assessment & Plan (1) Diarrhea: Code(s): R19.7 - Diarrhea, unspecified Category: Medical Qualifiers: Diarrhea type: unspecified type Qualified Code(s): R19.7 - Diarrhea, unspecified Plan Onset 08/2023 with diarrhea 5 times a day loose with fecal urgency. He was going through a very stressful life event at the time. He presented to his PCP and they did some tests and labs and CT. There were no new medicines or diert changes prior to the onset of sx. No abd pain, no N/V or fevers, no known sick contacts. His BM's at baseline were normal and formed. He had a negative scope 10 years ago at [facility] and he was told he had a torturous colon. No known FHX of similar diarrheal sx. He has used bentyl w/o any good effect and imodium that seemed to work well when he took 2 for going out. Will get more extensive stool testing, chem panel r/t elevated bili, food allergy testing. Take imodium scheduled. There are no prior problems with anesthesia or sedation. He denies any cardiac or respiratory problems. There are no infectious disease problems. There is no known family history of colon cancer or polyps. ROV keep 2/4 appt already scheduled. Orders: Orders Transglutaminase Ab IgG Today R19.7 - Diarrhea, unspecified Rast Allergen Today R19.7 - Diarrhea, unspecified Colonoscopy - GI Use Only Today R19.7 - Diarrhea, unspecified Comprehensive Met. Panel Today R19.7 - Diarrhea, unspecified GI Panel Today R19.7 - Diarrhea, unspecified Bilirubin Direct Today R19.7 - Diarrhea, unspecified Transglutaminase IgA Today R19.7 - Diarrhea, unspecified Medications: New sod sulf-pot chloride-mag sulf 1.479-0.188- 0.225 gram (Sutab) PO PER PKG DIR for colonoscopy prep 24 tabs 0RF loperamide (Imodium A-D) 6 mg (3 x 2 mg) PO DAILY PRN 90 caps 3RF loose stool R19.7 - Diarrhea, unspecified Coding Level of Care Code New Pt Level 3 (02848) Diagnoses Diarrhea, unspecified type R19.7 Diarrhea type: unspecified type
== END 2024-04-13 11:18 | disposition home or self-care (01) ==
PROVIDERS: PCP Internal Medicine; Visit Provider Nurse Practitioner
DX: R19.7 Diarrhea, unspecified (principal)
CPT/HCPCS: 99203

== ENCOUNTER → 2024-04-13 10:06 | Outpatient (BNVA) | payer BC, SELFPAY | PROVIDERS: PCP Internal Medicine; Visit Provider Nurse Practitioner ==

== ENCOUNTER 2024-05-24 14:01 | Outpatient (REF) | payer BC, SELFPAY ==
[2024-05-24 16:15] LABS: Adenovirus F 40/41 Not Detected (Not Detect.); Astrovirus Not Detected (Not Detect.); Campylobacter Not Detected (Not Detect.); Cryptosporidium Not Detected (Not Detect.); Cyclospora cayetanensis Not Detected (Not Detect.); E. coli EAEC Not Detected (Not Detect.); E. coli EPEC Not Detected (Not Detect.); E. coli ETEC Not Detected (Not Detect.); E. coli STEC Not Detected (Not Detect.); Entamoeba histolytica Not Detected (Not Detect.); Giardia lamblia Not Detected (Not Detect.); Norovirus GI/GII Not Detected (Not Detect.); Plesiomonas shigelloides Not Detected (Not Detect.); Rotavirus A Not Detected (Not Detect.); Salmonella Not Detected (Not Detect.); Sapovirus Not Detected (Not Detect.); Shigella sp./EIEC Not Detected (Not Detect.); Vibrio Not Detected (Not Detect.); Vibrio Cholerae Not Detected (Not Detect.); Yersinia enterocolitica Not Detected (Not Detect.)
== END 2024-05-24 14:02 | disposition home or self-care (01) ==
LOC: HO.LNP 14:01
PROVIDERS: Visit Provider Nurse Practitioner
DX: R19.7 Diarrhea, unspecified (principal)
CPT/HCPCS: 87507

== ENCOUNTER → 2024-06-06 13:39 | Outpatient (BNVA) | payer BC, SELFPAY | PROVIDERS: PCP Internal Medicine; Visit Provider Internal Medicine | DX: I10 Essential (primary) hypertension (principal); B35.1 Tinea unguium | CPT/HCPCS: 96127 ==

== ENCOUNTER 2024-07-11 14:22 | Outpatient (AMB) | payer BC, SELFPAY ==
--- NOTE | 2024-07-11 14:31 | A.OFFPC_ITS ---
Vital Signs 07/11/24 14:32 Height 5 ft 11 in Weight 186 lb 4 oz BMI 26.0 BP 124/82 Blood Pressure Location Rt brachial Position Sitting Respiration 16 Pulse 85 Pulse Source Pulse Oximeter Pulse Oximetry (%) 98 Oxygen Delivery Method Room Air Intake Visit Reasons: Bp Follow up Intake Note: Blood pressure folow up Nuclear Medicine Officer Required: No Allergies No Known Allergies Allergy (Verified 07/11/24 14:32) Tobacco use date assessed: 07/11/24 Dental Screening Dental Screen Date: 11/20/23 HPI HPI Comments History of Present Illness Details The patient is a 58 year old male with history of frequent loose stools, borderline BP presenting for follow up Hypertension-started on amlodipine last month. BP at home 110-135/70s-80s. 124/82. Feeling well. No side effects GI: Saw GI in March. Scheduled for colonoscopy. Symptoms are persistent but stable Diarrhea for 6 weeks, occurring about 7 x day. This happened before in his 20's told of viral illness and cured on its own. Nonbloody, no wt loss. Appetite normal. Colon 2-3 years ago. Not active with GI. No vomiting, recent travel. + stress. Ab exposure - 1 time in the last year.Abd feels uncomfortable. Normal urination. Denies fever, chills. etoh daily denies changes in etoh intake Initial CMP with slight elevation in t bili and LFTs-these normalized. Stool negative for H Pylori & C Diff Continues to have same symptoms. 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 Says chronic urgency. Denies weight loss. Endorses a few episodes of night sweats. No fevers. Admits may colonoscopy longer than 2-3 years ago, said not long after 51, told 10 year repeat. Was told at time he had spastic colon and some internal hemorrhoids ROS see HPI PHYSICAL EXAM: GENERAL: Alert and oriented x 3. NAD EYES: EOMI. Anicteric. HENT: Moist mucous membranes. No scleral icterus. No cervical lymphadenopathy. LUNGS: Clear to auscultation bilaterally. CARDIOVASCULAR: Regular rate and rhythm. No murmur. No JVD. ABDOMEN: Soft, non-tender +bs EXTREMITIES: No edema. Non-tender. SKIN: No rashes or lesions. Warm. NEUROLOGIC: No focal neurological deficits. CN II-XII grossly intact PSYCHIATRIC: Cooperative. Appropriate mood and affect [facility] Medical History Abdominal pain Encounter to establish care Screening for prostate cancer Physical exam Peptic ulcer Inguinal hernia Surgical History H/O colonoscopy History of hernia repair Family History Father Diabetes Social History Household Members: Spouse and Children Housing: House Are you a primary care team coordinator scheduler to a significant other at home: No Do you presently have visiting nurse or other home services: No 75 years or older and lives alone: No Alcohol intake: current Alcohol intake frequency: 0-2 drinks per day Alcohol type: beer Patient Tobacco Use Status: Current someday Tobacco user Tobacco use type: Cigar Years Smoked: 10 e-Cigarette/Vaping Use: Never Used Second Hand Smoke Exposure: No service: No Current occupational status: employed 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 [employer] Current occupational exposures/hazards: No Cognitive needs: No Hearing needs: No Vision needs: No Questionnaire Thrive Questionnaire Date Thrive assessed: 07/11/24 I am a: Patient What is your living situation today?: I have a steady place to live Within the past 12 months, did the food you bought not last and you didn't have the money to get more?: Never true Within the past 12 months, did you worry whether your food would run out before you got money to buy more?: Never true Do you have trouble paying for medicines?: No Do you have trouble getting transportation to medical appointments?: No Do you have trouble paying your heating and electricity bill?: No Do you have trouble taking care of your child, family member or friend?: No Do you have trouble with day-to-day activities such as bathing, preparing meals, shopping, managing finances, etc.?: No Are you currently unemployed and looking for a job?: No Are you interested in more education?: No Please select the resources that you would like help with: None Currently or been in a relationship where the following occur: No concerns reported THRIVE Score: 0 ASHLEIGH-7 AMB Questionnaire ASHLEIGH-7 Date ASHLEIGH - 7 assessed: 11/20/23 Source: Developed by Drs. Gli Ward, Lenka Kapadia, Roberth Buchanan and colleagues, with an educational chava from [email or web address]. Physical exam (Primary Care) Vital Signs: Last Vital Signs Pulse 85 07/11/24 14:32 Resp 16 07/11/24 14:32 BP 124/82 07/11/24 14:32 Pulse Ox 98 07/11/24 14:32 Oxygen Delivery Method Room Air 07/11/24 14:32 BMI result Body Mass Index 26.0 Tobacco/Smoking Status: Tobacco use Status Tobacco use date assessed 11/20/23 06/06/24 13:55 Patient Tobacco Use Status Current someday Tobacco 06/06/24 13:55 Tobacco use type Cigar 06/06/24 13:55 e-Cigarette/Vaping Use Never Used 06/06/24 13:55 Thrive Assessment: Date of Thrive Assessment Date Thrive assessed 06/06/24 06/06/24 13:55 Currently or been in a relationship where the following occur: No concerns reported Coding Level of Care Code Est Pt Level 3 (52009) Diagnoses Primary hypertension I10 Hypertension type: primary hypertension Assessment & Plan Assessment & Plan (1) Hypertension: Code(s): I10 - Essential (primary) hypertension Category: Medical Qualifiers: Hypertension type: primary hypertension Qualified Code(s): I10 - Essential (primary) hypertension Plan: Continue amlodipine. Low salt diet, lifestyle management Return in six months Orders: Orders UA CC w/rflx Micro + Cult 6 Months I10 - Essential (primary) hypertension, Z13.0 - Encounter for screening for diseases of the blood and blood-forming organs and certain disorders involving the immune mechanism Complete Blood Count Auto Diff 6 Months I10 - Essential (primary) hypertension, Z13.0 - Encounter for screening for diseases of the blood and blood-forming organs and certain disorders involving the immune mechanism Comprehensive Met. Panel 6 Months I10 - Essential (primary) hypertension, Z13.0 - Encounter for screening for diseases of the blood and blood-forming organs and certain disorders involving the immune mechanism Lipid Panel 6 Months I10 - Essential (primary) hypertension, Z13.0 - Encounter for screening for diseases of the blood and blood-forming organs and certain disorders involving the immune mechanism
[2024-07-11 14:32] VITALS: BP 124/82; PULSE 85; RESP 16; O2SAT 98; BMI 26.0
== END 2024-07-11 14:45 | disposition home or self-care (01) ==
LOC: HO.HMCFM 14:24
PROVIDERS: PCP Internal Medicine; Visit Provider Internal Medicine
DX: I10 Essential (primary) hypertension (principal)

== ENCOUNTER → 2024-07-11 14:22 | Outpatient (BNVA) | payer BC, SELFPAY | PROVIDERS: PCP Internal Medicine; Visit Provider Internal Medicine ==

== ENCOUNTER 2024-08-04 15:04 | Outpatient (AMB) | payer BC, SELFPAY ==
--- NOTE | 2024-08-04 15:11 | A.OFFVIS_ITS ---
Vital Signs 08/04/24 15:18 Height 5 ft 11 in Weight 184 lb BMI 25.7 BP 137/84 Blood Pressure Location Rt brachial Position Sitting Pulse 65 Intake Visit Reasons: Diarrhea Intake Note: Patient in office today in follow up of diarrhea. CC: Patient reports doing a little bit better but sometimes still has diarrhea. Denies other GI symptoms or concerns today. Senior Case Manager Required: No Accompanied by: Self / Same As Patient Allergies No Known Allergies Allergy (Verified 08/04/24 15:23) HPI HPI Diarrhea: Details: Assessment & Plan (1) Diarrhea: Code(s): R19.7 - Diarrhea, unspecified Category: Medical Qualifiers: Diarrhea type: unspecified type Qualified Code(s): R19.7 - Diarrhea, unspecified Plan Onset 08/2023 with diarrhea 5 times a day loose with fecal urgency. He was going through a very stressful life event at the time. He presented to his PCP and they did some tests and labs and CT. There were no new medicines or diert changes prior to the onset of sx. No abd pain, no N/V or fevers, no known sick contacts. His BM's at baseline were normal and formed. He had a negative scope 10 years ago at [facility] and he was told he had a torturous colon. No known FHX of similar diarrheal sx. He has used bentyl w/o any good effect and imodium that seemed to work well when he took 2 for going out. Will get more extensive stool testing, chem panel r/t elevated bili, food allergy testing. Take imodium scheduled. There are no prior problems with anesthesia or sedation. He denies any cardiac or respiratory problems. There are no infectious disease problems. There is no known family history of colon cancer or polyps. ROV keep 2/4 appt already scheduled. Orders: Orders Transglutaminase Ab IgG Today R19.7 - Diarrhea, unspecified Rast Allergen Today R19.7 - Diarrhea, unspecified Colonoscopy - GI Use Only Today R19.7 - Diarrhea, unspecified Comprehensive Met. Panel Today R19.7 - Diarrhea, unspecified GI Panel Today R19.7 - Diarrhea, unspecified Bilirubin Direct Today R19.7 - Diarrhea, unspecified Transglutaminase IgA Today R19.7 - Diarrhea, unspecified Medications: New sod sulf-pot chloride-mag sulf 1.479-0.188- 0.225 gram (Sutab) PO PER PKG DIR for colonoscopy prep 24 tabs 0RF loperamide (Imodium A-D) 6 mg (3 x 2 mg) PO DAILY PRN 90 caps 3RF loose stool R19.7 - Diarrhea LABS: Laboratory Tests 05/13/24 11:48 Total Bilirubin 1.1 H Direct Bilirubin 0.4 Tiss Transglutamin IgG <1.0 Tiss Transglutamin IgA <1.0 RAST panel shows no significant food allergies 05/24/24-[address]: ORDERED: GI Panel Test Result Flag Reference Campylobacter Not Detected Not Detect. P. shigelloides Not Detected Not Detect. Salmonella Not Detected Not Detect. Vibrio Not Detected Not Detect. Vibrio Cholerae Not Detected Not Detect. Y. enterocolit. Not Detected Not Detect. E. coli EAEC Not Detected Not Detect. E. coli EPEC Not Detected Not Detect. E. coli ETEC Not Detected Not Detect. E. coli STEC Not Detected Not Detect. E. coli O157 Not applicable Not Detect. E. coli containing the O157 antigen are a subset of Shiga-like toxin-producing E. coli (STEC). Shigella/EIEC Not Detected Not Detect. Cryptosporidium Not Detected Not Detect. Cyclospora Not Detected Not Detect. E. histolytica Not Detected Not Detect. Giardia lamblia Not Detected Not Detect. Adenovirus Not Detected Not Detect. Astrovirus Not Detected Not Detect. Norovirus Not Detected Not Detect. Rotavirus A Not Detected Not Detect. Sapovirus Not Detected Not Detect. COLONOSCOPY SCHEDULED FOR 09/01/2024 BIOPSY TODAY'S VISIT His diarrhea has resolved with better stress management. He no longer needs to use imodium. ROV after colonoscopy. [facility] Medical History Abdominal pain Encounter to establish care Screening for prostate cancer Physical exam Peptic ulcer Inguinal hernia Surgical History H/O colonoscopy History of hernia repair Family History Father Diabetes Social History Household Members: Spouse and Children Housing: House Are you a primary career discovery teacher to a significant other at home: No Do you presently have visiting nurse or other home services: No 75 years or older and lives alone: No Alcohol intake: current Alcohol intake frequency: 0-2 drinks per day Alcohol type: beer Patient Tobacco Use Status: Current someday Tobacco user Tobacco use type: Cigar Years Smoked: 10 e-Cigarette/Vaping Use: Never Used Second Hand Smoke Exposure: No service: No Current occupational status: employed 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 [employer] Current occupational exposures/hazards: No Cognitive needs: No Hearing needs: No Vision needs: No Review of Systems Const Denies fatigue, Denies fever(s), Denies night sweats, Denies poor appetite and Denies weight loss ENT Reports Normal hearing present, Denies dental pain, Denies dysphagia, Denies hearing loss, Denies mouth pain, Denies odynophagia, Denies throat swelling, Denies tongue swelling and Reports other (Dentition adequate) Card Reports no additional complaints Resp Reports no additional complaints GI Details: Denies abdominal pain, Denies melena, Denies bloating, Denies hematochezia, Denies constipation, Denies GI cramping, Denies dysphagia, Denies excessive flatus, Denies early satiety, Reports heartburn, Reports diarrhea, Denies nausea, Denies odynophagia, Denies vomiting and Denies hematemesis Skin/Breast Denies pruritus, Denies lesions, Denies rash and Denies jaundice Neuro Reports Normal hearing present and Denies Abnormal speech present Endo Denies fatigue Aller/Immun Denies throat swelling and Denies tongue swelling Physical Exam Vital Signs: Last Vital Signs Pulse 65 08/04/24 15:18 BP 137/84 08/04/24 15:18 BMI result Body Mass Index 25.7 Const General: cooperative, no acute distress, well developed and well groomed Nutritional Appearance: average body habitus and well nourished Orientation/consciousness: oriented to person, oriented to place and oriented to time Limitations: No language barrier HEENT Head: Yes normocephalic and Yes atraumatic Eyes General: appearance normal, both eyes and all related structures Pupils: Equal, round and reactive pupils present Neck Neck: Yes normal visual inspection and Yes no lymphadenopathy Thyroid: Thyroid normal Resp Effort & Inspection: normal respiratory effort and able to speak in complete sentences Auscultation: clear to auscultation bilaterally Cardio Rate: regular rate Rhythm: regular rhythm Heart sounds: Normal, physiologic split S2 sound present Peripheral pulses: radial pulses present and posterior tibial pulses present GI Inspection: No distended and No Abdominal panniculus present Palpation (GI): Soft to palpation, nontender, no guarding, not rigid and No hepatosplenomegaly present Percussion: Yes normal to percussion Auscultation: normal bowel sounds Rectal Exam - Male: Yes deferred Skin General skin exam: no rashes or lesions noted, turgor normal, skin not dry, no jaundice, No spider nevi and no striae Rashes: no rashes Nails: normal Neuro General: oriented to person, oriented to place and oriented to time Cranial nerves: Yes Equal, round and reactive pupils present and Yes Normal hearing present Speech: No Abnormal speech present Extrem General: Yes normal to inspection, No clubbing, No cyanosis and No edema Psych Appearance: grossly normal and well kempt Mental Status: mental status grossly normal Speech and movement: Normal speech and movement present Affect: normal affect Attitude: cooperative Thought process: Normal thought process present and not confabulating Thought content: Normal thought content present Insight: Good insight present (Psych) Judgement: Good judgement present (Psych) Assessment & Plan Assessment & Plan (1) Diarrhea: Code(s): R19.7 - Diarrhea, unspecified Category: Medical Qualifiers: Diarrhea type: unspecified type Qualified Code(s): R19.7 - Diarrhea, unspecified (2) Fecal urgency: Code(s): R15.2 - Fecal urgency Category: Medical Plan His diarrhea has resolved with better stress management. He no longer needs to use imodium. ROV after colonoscopy. Coding Level of Care Code Est Pt Level 3 (81075) Diagnoses Diarrhea, unspecified type R19.7 Diarrhea type: unspecified type Fecal urgency R15.2
[2024-08-04 15:18] VITALS: BP 137/84; PULSE 65; BMI 25.7
== END 2024-08-04 15:49 | disposition home or self-care (01) ==
LOC: HO.HGI 15:05
PROVIDERS: PCP Internal Medicine; Visit Provider Nurse Practitioner
DX: R19.7 Diarrhea, unspecified (principal); R15.2 Fecal urgency
CPT/HCPCS: 99213

== ENCOUNTER → 2024-08-04 15:04 | Outpatient (BNVA) | payer BC, SELFPAY | PROVIDERS: PCP Internal Medicine; Visit Provider Nurse Practitioner ==

== ENCOUNTER 2024-09-01 08:13 | Day surgery (SDC) | payer BC, SELFPAY ==
[2024-08-30 13:39] VITALS: BMI 25.7
--- NOTE | 2024-08-31 09:41 | HO.ANESPROP2 ---
HPI - Anesthesia Eval Consult details Narrative: 58yo M for Colonoscopy PMF Active Problems Active Problems: All Active Problems Screening, deficiency anemia, iron (Acute) Onychomycosis (Acute) Hypertension (Acute) Cyst, dermoid, arm (Acute) Night sweats (Acute) Fecal urgency (Acute) Diarrhea (Acute) Abdominal pain (Acute) Past Medical History Medical History (Updated 08/30/24 @ 13:36 by Destinee Louise RN) HTN (hypertension) Abdominal pain Peptic ulcer Family History Family History Father Diabetes Surgical History Surgical History H/O colonoscopy History of hernia repair Social History Social History Household Members: Spouse and Children Housing: House Are you a primary healthcare financial analyst to a significant other at home: No Do you presently have visiting nurse or other home services: No 75 years or older and lives alone: No Alcohol intake: current Alcohol intake frequency: 0-2 drinks per day Alcohol type: beer Patient Tobacco Use Status: Current someday Tobacco user Tobacco use type: Cigar Years Smoked: 10 e-Cigarette/Vaping Use: Never Used Second Hand Smoke Exposure: No service: No Current occupational status: employed 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
[2024-09-01 08:41] VITALS: BMI 25.2
[2024-09-01] MEDS: Lactated Ringers 1,000 ML 100 ML IVCONT (08:48)
[2024-09-01 08:56] VITALS: BP 136/97; PULSE 78; RESP 18; TEMP 36.6; O2SAT 97
--- NOTE | 2024-09-01 09:56 | HO.ANESPROP2 ---
[facility] Active Problems Active Problems: All Active Problems Screening, deficiency anemia, iron (Acute) Onychomycosis (Acute) Hypertension (Acute) Cyst, dermoid, arm (Acute) Night sweats (Acute) Fecal urgency (Acute) Diarrhea (Acute) Abdominal pain (Acute) Past Medical History Medical History HTN (hypertension) Abdominal pain Peptic ulcer Functional capacity: independent ambulation Family History Family History Father Diabetes Family history of problems with anesthesia: No Surgical History Surgical History H/O colonoscopy History of hernia repair History of Problems with Anesthesia: No Social History Social History Household Members: Spouse and Children Housing: House Are you a primary before and after school daycare worker to a significant other at home: No Do you presently have visiting nurse or other home services: No Alcohol intake: current Alcohol intake frequency: 0-2 drinks per day Alcohol type: beer Patient Tobacco Use Status: Former Tobacco user Tobacco use type: Cigar Years Smoked: 10 e-Cigarette/Vaping Use: Never Used Second Hand Smoke Exposure: No Have you been hit, kicked, punched, or otherwise hurt by someone within the past year? 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 [employer] Current occupational exposures/hazards: No Cognitive needs: No Hearing needs: No Vision needs: No Meds Allergies Allergy/AdvReac Type Severity Reaction Status Date / Time No Known Allergies Allergy Verified 09/01/24 09:11 Active Medications: Current Medications Lactated Ringer's (Lr) 1,000 mls @ 100 mls/hr IVCONT .Q10H TONIO Last Admin: 09/01/24 08:48 Dose: 100 mls/hr Exam Height,Weight and Vital Signs: Height 5 ft 11 in Weight 82.1 kg Last Vital Signs Temp 97.9 F 09/01/24 08:56 Pulse 78 09/01/24 08:56 Resp 18 09/01/24 08:56 BP 136/97 H 09/01/24 08:56 Pulse Ox 97 09/01/24 08:56 O2 Del Method Room Air 09/01/24 08:56 Airway Mallampati Class: II TM Dist: >3cm Neck ROM: Full Heart: RRR Lungs: CTA Assessment and Plan Assessment Anesthesia Assessment: Anesthesia Plan Discussed and Chart Reviewed Final Anesthetic Review Family History of Problems with Anesthesia: No History of Problems with Anesthesia: No NPO: Yes ASA Class: II Final Preanesthetic Review: Meds/Allgs Chart Reviewed, Consent Obtained/Reviewed and Anes Risks/Benef Reviewed Patient Risk: Low Procedure Risk: Low Anesthetic Plan Anesthetic Plan: MAC: Disposition: Standard PACU
--- NOTE | 2024-09-01 10:09 | MHC.SHP ---
Pre-Procedural Eval Section A - 24 Hr Update-Section A only Date of Service: 09/01/24 Section B - Complete if H&P > 30 days Chief Complaint: Diarrhea, unspecified Relevant Family History (Specify if Yes): No Relevant Social History: None Present Medications: see Short Stay Collaborative assessment Medical History: Significant History (HTN (hypertension) Abdominal pain Peptic ulcer) History of Previous Operations: Relevant previous surgery/procedure and date(s) ( H/O colonoscopy History of hernia repair) Allergies: Allergies Allergy/AdvReac Type Severity Reaction Status Date / Time No Known Allergies Allergy Verified 09/01/24 09:11 Review of Systems Sugical H&P ROS: Negative: Constitution, Cardiovascular, Respiratory, Neurological, Psychiatric, Hem-Onc, Allergic/Immunologic, Gastrointestinal, Genitourinary, Musculoskeletal, Integumentary, Endocrine and Eyes/Ears/Nose/Throat Exam Surgical H&P Exam: Normal: HEENT, Normal: Heart, Normal: Lungs, Normal: Extremities, Normal: Abdomen, Normal: Skin and Normal: Neurological Plan Diagnosis/Plan: Unchanged I have reviewed the history and physical and performed a pertinent physical examination on my patient. No changes have occurred unless specified. Time Spent With Patient Time: Total time managing care of this patient today ____ minutes.
--- NOTE | 2024-09-01 10:47 | P.OPN-COLO_ITS ---
Colonoscopy Operative Note Operative Note Date of Service: 09/01/24 Narrative: Operative Information Procedure Description: Colonoscopy Indication: abn bowel habit Anesthesia: MAC COLONOSCOPY Instrument: Olympus variable stiffness pediatric scope 190L Colonoscopy Monitoring: Vital signs and clinical assessment, continuous EKG monitoring, Pulse oximetry, Carbon Dioxide monitoring and blood pressure monitoring were done throughout the procedure. Colon withdrawal time was 10 minutes. Procedure: The patient was placed in the left lateral decubitis position and pre-procedure medications were administered. After a digital rectal examination of the ano-rectum, the video colonoscope was inserted into the rectum and advanced through the colon to the cecum/TI. The colonoscope was slowly withdrawn in a retrograde panoramic fashion and the colon mucosa was carefully examined including a retroflexed view of the rectum. Findings and interventions are described below. Procedure Difficulty: easy Findings: Terminal Ileum- mild erythema - bx taken random bx taken from right and left colo in different jars Cecum:normal Ascending Colon: 5-6 mm sessile polyp removed with cold forceps Transverse Colon -normal Descending Colon:normal Sigmoid Colon: normal Rectum: Retroflexion with small internal hemorrhoids seen, grade I Anorectum - normal Intervention: cold forceps Colon preparation: Se[place]oard Bowel Preparation Scale Right colon; 1-2 Transverse colon: 2 Left colon; 2 (0 = Unprepared colon segment with mucosa not seen due to solid stool that cannot be cleared. 1 = Portion of mucosa of the colon segment seen, but other areas of the colon segment not well seen due to staining, residual stool and/or opaque liquid. 2 = Minor amount of residual staining, small fragments of stool and/or opaque liquid, but mucosa of colon segment seen well. 3 = Entire mucosa of colon segment seen well with no residual staining, small fragments of stool or opaque liquid) Impression and Post Procedure Diagnosis: colon polyp x 1 internal hemorrhoids Plan: High fiber diet leaflet Avoid straining at stool, epsom salts and sitz bath, anusol supps or cream Repeat Colonoscopy in 3-4 years due to areas of fair prep o n the right or earlier if clinically indicated if ongoing diarrhea and neg bx then recommend EGD to r/o enteropathy Above findings were reviewed with the patient and relevant handouts were provided if indicated.
[2024-09-01 10:50] VITALS: BP 116/83; PULSE 76; RESP 16; TEMP 36.1
[2024-09-01 11:05] VITALS: BP 135/96; PULSE 80; RESP 18; TEMP 36.1; O2SAT 98
--- NOTE | 2024-09-01 11:10 | HO.POSTANES ---
Post Anesthesia Evaluation Post Anesthesia Evaluation Date of Service: 09/01/24 Vital Signs: Vital Signs Temp Pulse Resp BP Pulse Ox O2 Del Method 09/01/24 11:05 97 F 80 18 135/96 H 98 Room Air 09/01/24 10:50 97 F 76 16 116/83 Room Air 09/01/24 08:56 97.9 F 78 18 136/97 H 97 Room Air
== END 2024-09-01 11:32 | disposition home or self-care (01) ==
PROVIDERS: PCP Internal Medicine; Visit Provider Internal Medicine Gastroenterology
PROC: 0DJD8ZZ Inspection of Lower Intestinal Tract, Via Natural or Artificial Opening Endoscopic (ICD-10-PCS; CPT 45378; principal; 2024-09-01 11:20)
DX: R19.4 Change in bowel habit (principal); D12.2 Benign neoplasm of ascending colon; K64.0 First degree hemorrhoids; R15.2 Fecal urgency; I10 Essential (primary) hypertension; F17.200 Nicotine dependence, unspecified, uncomplicated; Z79.899 Other long term (current) drug therapy
CPT/HCPCS: 45380; 88305; J2003; J2704

== ENCOUNTER → 2024-09-01 08:13 | Outpatient (BNV) | payer BC, SELFPAY | PROVIDERS: PCP Internal Medicine; Visit Provider Internal Medicine Gastroenterology | DX: R19.4 Change in bowel habit (principal); D12.2 Benign neoplasm of ascending colon; K64.0 First degree hemorrhoids | CPT/HCPCS: 45380 ==

== ENCOUNTER 2024-09-29 15:42 | Outpatient (AMB) | payer BC, SELFPAY ==
--- NOTE | 2024-09-29 15:43 | A.OFFVIS_ITS ---
Vital Signs 09/29/24 15:45 Height 5 ft 11 in Weight 180 lb BMI 25.1 BP 140/94 H Blood Pressure Location Rt brachial Position Sitting Pulse 66 Pulse Source Pulse Oximeter Pulse Oximetry (%) 97 Oxygen Delivery Method Room Air Intake Visit Reasons: follow up Intake Note: Established patient for mgmt s/p colo + chronic abd pain and fecal abn. CC; Pt denies any GI sx or concerns at this time. Condition(s) well controlled. Pt here to review results of procedure. Personnel Research Psychologist Required: No Accompanied by: Self / Same As Patient Allergies No Known Allergies Allergy (Verified 09/29/24 15:51) HPI HPI follow up: Details: Assessment & Plan (1) Diarrhea: Code(s): R19.7 - Diarrhea, unspecified Category: Medical Qualifiers: Diarrhea type: unspecified type Qualified Code(s): R19.7 - Diarrhea, unspecified (2) Fecal urgency: Code(s): R15.2 - Fecal urgency Category: Medical Plan His diarrhea has resolved with better stress management. He no longer needs to use imodium. ROV after colonoscopy. There is no known family history of colon cancer or polyps. COLONOSCOPY 09/01/24 Findings: Terminal Ileum- mild erythema - bx taken random bx taken from right and left colo in different jars Cecum:normal Ascending Colon: 5-6 mm sessile polyp removed with cold forceps Transverse Colon -normal Descending Colon:normal Sigmoid Colon: normal Rectum: Retroflexion with small internal hemorrhoids seen, grade I Anorectum - normal Intervention: cold forceps Impression and Post Procedure Diagnosis: colon polyp x 1 internal hemorrhoids Plan: High fiber diet leaflet Avoid straining at stool, epsom salts and sitz bath, anusol supps or cream Repeat Colonoscopy in 3-4 years due to areas of fair prep o n the right or earlier if clinically indicated if ongoing diarrhea and neg bx then recommend EGD to r/o enteropathy BIOPSY Received: 09/01/24 Diagnosis A. Terminal ileum, biopsy: Ileal mucosa with no specific change. B. Colon, right, biopsy: Colonic mucosa with lymphoid aggregate and no specific change; no evidence of microscopic colitis. C. Colon, ascending, polyp: Tubular adenoma; negative for high-grade dysplasia and carcinoma. D. Colon, left, biopsy: Colonic mucosa with no specific change; no evidence of microscopic colitis. E. Colon, rectum, biopsy: Colonic mucosa with minor crypt distortion, otherwise no specific change; no evidence of microscopic colitis TODAY'S VISIT He had to drive to [place] the prep day and likely did not drink enough fluids to clear. He is agreeable to a 3-4 year follow up. The procedure was well tolerated. The results were explained and the patient is agreeable to the follow-up interval as stated. The bowel pattern has returned to normal. Education was provided to tell any 1st degree relatives about their findings to be sure that they are screened by age 45. Educated that they will be put on a recall list when it is time for their repeat scope but should they move out of state or away from the hospital they will need to remember along with their primary to repeat the procedure in a timely fashion to avoid any adverse complications. [facility] Medical History HTN (hypertension) Abdominal pain Peptic ulcer Surgical History H/O colonoscopy History of hernia repair Family History Father Diabetes Social History Household Members: Spouse and Children Housing: House Are you a primary nurse behavioral health care to a significant other at home: No Do you presently have visiting nurse or other home services: No 75 years or older and lives alone: No Alcohol intake: current Alcohol intake frequency: 0-2 drinks per day Alcohol type: beer Patient Tobacco Use Status: Former Tobacco user Tobacco use type: Cigar Years Smoked: 10 e-Cigarette/Vaping Use: Never Used Second Hand Smoke Exposure: No service: No Current occupational status: employed 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 [employer] Current occupational exposures/hazards: No Cognitive needs: No Hearing needs: No Vision needs: No Review of Systems Const Denies fatigue, Denies fever(s), Denies night sweats, Denies poor appetite and Denies weight loss Eyes Reports requires corrective lenses ENT Reports Normal hearing present, Denies dental pain, Denies dysphagia, Denies hearing loss, Denies mouth pain, Denies odynophagia, Denies throat swelling, Denies tongue swelling and Reports other (Dentition adequate) GI Details: Denies abdominal pain, Denies melena, Denies bloating, Denies hematochezia, Denies constipation, Denies GI cramping, Denies dysphagia, Denies excessive flatus, Denies early satiety, Denies heartburn, Denies diarrhea, Denies nausea, Denies odynophagia, Denies vomiting and Denies hematemesis Skin/Breast Denies pruritus, Denies lesions, Denies rash and Denies jaundice Neuro Reports Normal hearing present and Denies Abnormal speech present Endo Denies fatigue Aller/Immun Denies throat swelling and Denies tongue swelling Physical Exam Vital Signs: Last Vital Signs Pulse 66 09/29/24 15:45 BP 140/94 H 09/29/24 15:45 Pulse Ox 97 09/29/24 15:45 Oxygen Delivery Method Room Air 09/29/24 15:45 BMI result Body Mass Index 25.1 Const General: cooperative, no acute distress, well developed and well groomed Nutritional Appearance: well nourished, obese and overweight Orientation/consciousness: oriented to person, oriented to place and oriented to time Limitations: No language barrier, ambulation with cane, ambulation with walker and wheelchair HEENT Head: Yes normocephalic and Yes atraumatic Eyes General: appearance normal, both eyes and all related structures Pupils: Equal, round and reactive pupils present Neck Neck: Yes normal visual inspection and Yes no lymphadenopathy Thyroid: Thyroid normal Resp Effort & Inspection: normal respiratory effort and able to speak in complete sentences Auscultation: clear to auscultation bilaterally Cardio Rate: regular rate Rhythm: regular rhythm Heart sounds: Normal, physiologic split S2 sound present Peripheral pulses: radial pulses present and posterior tibial pulses present GI Inspection: No distended and No Abdominal panniculus present Palpation (GI): Soft to palpation, nontender, no guarding, not rigid, No hepatosplenomegaly present and Hepatosplenomegaly present Percussion: Yes normal to percussion Auscultation: normal bowel sounds Rectal Exam - Male: Yes deferred Skin General skin exam: no rashes or lesions noted, turgor normal, skin not dry, no jaundice, No spider nevi and no striae Rashes: no rashes Nails: normal Neuro General: oriented to person, oriented to place and oriented to time Cranial nerves: Yes Equal, round and reactive pupils present and Yes Normal hearing present Speech: No Abnormal speech present Extrem General: Yes normal to inspection, No clubbing, No cyanosis and No edema Psych Thought process: Normal thought process present and not confabulating Thought content: Normal thought content present Insight: Good insight present (Psych) Judgement: Good judgement present (Psych) Assessment & Plan Assessment & Plan (1) Tubular adenoma of colon: Comment: 08/2024=TA repeat in 3-4 years r/t fair rt sided prep Code(s): D12.6 - Benign neoplasm of colon, unspecified Category: Medical Plan He had to drive to [place] the prep day and likely did not drink enough fluids to clear. He is agreeable to a 3-4 year follow up. The procedure was well tolerated. The results were explained and the patient is agreeable to the follow-up interval as stated. The bowel pattern has returned to normal. Education was provided to tell any 1st degree relatives about their findings to be sure that they are screened by age 45. Educated that they will be put on a recall list when it is time for their repeat scope but should they move out of state or away from the hospital they will need to remember along with their primary to repeat the procedure in a timely fashion to avoid any adverse complications. Coding Level of Care Code Est Pt Level 3 (80354) Diagnoses Tubular adenoma of colon D12.6
[2024-09-29 15:45] VITALS: BP 140/94; PULSE 66; O2SAT 97; BMI 25.1
== END 2024-09-29 16:38 | disposition home or self-care (01) ==
PROVIDERS: PCP Internal Medicine; Visit Provider Nurse Practitioner
DX: D12.6 Benign neoplasm of colon, unspecified (principal)
CPT/HCPCS: 99213

== ENCOUNTER → 2024-09-29 15:42 | Outpatient (BNVA) | payer BC, SELFPAY | PROVIDERS: PCP Internal Medicine; Visit Provider Nurse Practitioner ==

== ENCOUNTER 2025-03-30 14:16 | Outpatient (REF) | payer BC, SELFPAY ==
[2025-03-30 17:49] LABS: MANUAL DIFF FLAG NO
[2025-03-30 17:54] LABS: Appearance Urine Clear; Glucose Urine UA Negative (Negative); PH 6.5 (5.0-9.0); Specific Gravity - Urine <= 1.005 (1.005-1.025)
[2025-03-30 18:03] LABS: Hematocrit 44.4 % (42.0-52.0); Hemoglobin 15.0 g/dl (14.0-18.0); Imm Gran Abs Auto 0.03 X10*3/uL (0.00-0.03); Imm Gran Pct Auto 0.4 % (0.0-0.4); Lymphocytes Absolute Auto 1.5 X10*3/uL (1.2-4.9); Mean Corpuscular HGB Conc 33.8 g/dl (31.0-36.0); Mean Corpuscular Hemoglobin 30.5 pg (27.0-33.0); Mean Corpuscular Volume 90.2 fL (80.0-98.0); NRBC Abs Auto 0.000 X10*3/uL (0.0-0.012); NRBC Pct Auto 0.0 /100WBC (0.0-0.2); Platelet Count 229 X10*3/uL (160-400); Red Blood Count 4.92 X10*6/uL (4.60-5.80); White Blood Count 6.7 X10*3/uL (4.8-10.8)
[2025-03-30 18:31] LABS: Prostate Specific Antigen 0.18 ng/mL (<0.05-4.0)
[2025-03-30 18:38] LABS: Alanine Aminotransferase 57 U/L (0-40); Albumin Level 4.9 g/dL (3.5-5.0); Alkaline Phosphatase 72 U/L (39-117); Anion Gap 13 (12-20); Aspartate Amino Transferase 42 U/L (5-37); Blood Urea Nitrogen 14 mg/dL (9-16); Calcium 9.5 mg/dL (8.4-10.2); Carbon Dioxide 26 mmol/L (22-29); Chloride 103 mmol/L (96-108); Cholesterol 204 mg/dL (<200); Estimated Glomerular Filt Rate > 60; HDL Cholesterol 88 mg/dL (>40); Potassium 4.2 mmol/L (3.3-5.1); Sodium 138 mmol/L (135-145); Total Protein 7.2 g/dL (6.5-8.0); Triglycerides 89 mg/dL (<150)
== END 2025-03-30 14:17 | disposition home or self-care (01) ==
LOC: HO.WFDLDS 14:16
PROVIDERS: Visit Provider Internal Medicine
DX: Z12.5 Encounter for screening for malignant neoplasm of prostate (principal); Z13.0 Encounter for screening for diseases of the blood and blood-forming organs and certain disorders involving the immune mechanism; I10 Essential (primary) hypertension; R19.7 Diarrhea, unspecified; R10.9 Unspecified abdominal pain; R61 Generalized hyperhidrosis; R35.89 Other polyuria; Z13.1 Encounter for screening for diabetes mellitus
CPT/HCPCS: 36415; 80053; 80061; 81003; 83036; 84153; 84443; 85025

== ENCOUNTER 2025-04-03 15:54 | Outpatient (AMB) | payer BC, SELFPAY ==
--- NOTE | 2025-04-03 15:58 | MHC.PC.OV ---
Vital Signs 04/03/25 16:01 Height 5 ft 11 in Weight 176 lb BMI 24.5 BP 120/82 Blood Pressure Location Lt brachial Position Sitting Respiration 14 Pulse 66 Pulse Source Pulse Oximeter Temp 98 F Temp Source Oral Pulse Oximetry (%) 99 Oxygen Delivery Method Room Air Intake Visit Reasons: f/up or cpe if due Intake Note: Physical Clinical Nursing Coordinator Required: No Allergies No Known Allergies Allergy (Verified 09/29/24 15:51) Tobacco use date assessed: 04/03/25 Dental Screening Dental Screen Date: 04/03/25 Did you have a dental visit in the last 12 months?: Yes Did you have a dental problem in the last 6 months where you did not have access to dental care?: No Was dental information given to patient?: Patient has dentist HPI HPI Comments History of Present Illness Details The patient is a 58 year old male with history of frequent loose stools, borderline BP presenting for follow up Hypertension-On amlodipine 5mg daily. BP is still running high. GI: Saw GI in March. Scheduled for colonoscopy. Symptoms are persistent but stable Diarrhea for 6 weeks, occurring about 7 x day. This happened before in his 20's told of viral illness and cured on its own. Nonbloody, no wt loss. Appetite normal. Colon 2-3 years ago. Not active with GI. No vomiting, recent travel. + stress. Ab exposure - 1 time in the last year.Abd feels uncomfortable. Normal urination. Denies fever, chills. etoh daily denies changes in etoh intake Initial CMP with slight elevation in t bili and LFTs-these normalized. Stool negative for H Pylori & C Diff Continues to have same symptoms. 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 Says chronic urgency. Denies weight loss. Endorses a few episodes of night sweats. No fevers. Admits may colonoscopy longer than 2-3 years ago, said not long after 51, told 10 year repeat. Was told at time he had spastic colon and some internal hemorrhoids Colonoscopy: September 2024 polyp. 3-4 year follow up. [facility] [place] Flu shot today Td 11/2023 ROS see HPI PHYSICAL EXAM: GENERAL: Alert and oriented x 3. NAD EYES: EOMI. Anicteric. HENT: Moist mucous membranes. No scleral icterus. No cervical lymphadenopathy. LUNGS: Clear to auscultation bilaterally. CARDIOVASCULAR: Regular rate and rhythm. No murmur. No JVD. ABDOMEN: Soft, non-tender +bs EXTREMITIES: No edema. Non-tender. SKIN: No rashes or lesions. Warm. NEUROLOGIC: No focal neurological deficits. CN II-XII grossly intact PSYCHIATRIC: Cooperative. Appropriate mood and affect [facility] Medical History HTN (hypertension) Abdominal pain Peptic ulcer Surgical History H/O colonoscopy History of hernia repair Family History Father Diabetes Social History Household Members: Spouse and Children Housing: House Are you a primary farm or ranch animal caretaker to a significant other at home: No Do you presently have visiting nurse or other home services: No 75 years or older and lives alone: No Alcohol intake: current Alcohol intake frequency: 0-2 drinks per day Alcohol type: beer Patient Tobacco Use Status: Former Tobacco user Tobacco use type: Cigar Years Smoked: 10 e-Cigarette/Vaping Use: Never Used Second Hand Smoke Exposure: No service: No Current occupational status: employed 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 [employer] Current occupational exposures/hazards: No Cognitive needs: No Hearing needs: No Vision needs: No Questionnaire Thrive Questionnaire Date Thrive assessed: 06/06/24 I am a: Patient What is your living situation today?: I have a steady place to live Within the past 12 months, did the food you bought not last and you didn't have the money to get more?: Never true Within the past 12 months, did you worry whether your food would run out before you got money to buy more?: Never true Do you have trouble paying for medicines?: No Do you have trouble getting transportation to medical appointments?: No Do you have trouble paying your heating and electricity bill?: No Do you have trouble taking care of your child, family member or friend?: No Do you have trouble with day-to-day activities such as bathing, preparing meals, shopping, managing finances, etc.?: No Are you currently unemployed and looking for a job?: No Are you interested in more education?: No Please select the resources that you would like help with: None Currently or been in a relationship where the following occur: No concerns reported THRIVE Score: 0 AUDIT C Alcohol Use Questionnaire (AUDIT-C) 1. How often do you have a drink containing alcohol?: 4 or more times a week 2. How many drinks containing alcohol do you have on a typical day when you are drinking?: 1 or 2 3. How often do you have six or more drinks on one occasion?: Never Total Score: 4 ASHLEIGH-7 AMB Questionnaire ASHLEIGH-7 Date ASHLEIGH - 7 assessed: 11/20/23 Source: Developed by Drs. Gil Ward, Lenka Kapadia, Roberth Buchanan and colleagues, with an educational chava from [employer]. Physical exam (Primary Care) Tobacco/Smoking Status: Tobacco use Status Tobacco use date assessed 07/11/24 04/03/25 15:59 Patient Tobacco Use Status Former Tobacco user 04/03/25 15:59 Tobacco use type Cigar 04/03/25 15:59 e-Cigarette/Vaping Use Never Used 04/03/25 15:59 Thrive Assessment: Date of Thrive Assessment Date Thrive assessed 06/06/24 04/03/25 15:59 Currently or been in a relationship where the following occur: No concerns reported Office Procedures Flu Questionnaire Does the patient have a severe egg allergy?: No Does the patient have severe life threatening allergies?: No Does the patient have a fever or illness today?: No Has the patient ever had Guillain-Bad Axe Syndrome?: No Has the patient ever had any past reaction to a flu shot?: No Immunizations Fluarix [id number] (PF) 45 mcg (15 mcg x 3)/0.5 mL IM syringe Performing Provider: Arielle Baker MD Performing Location: [facility] [place] Family Medicine Administered by: Bhumi Rangel CMA on 04/03/25 16:40 Dose Route Admin Location Dispensed Lot Number Expiration Date NDC Grain Elevator Motor Starter 0.5 mL IM Left Deltoid 0.5 mL [id number] 10/24/25 [id number] [employer] VIS Given Date VIS Provided VIS Publication Date 04/03/25 Single Vaccine 24 Eligibility Eligibility Date Funding Source Not [facility] Eligible 04/03/25 Private Coding Assessment & Plan Assessment & Plan Orders: Orders Liver Panel Today I10 - Essential (primary) hypertension, R19.7 - Diarrhea, unspecified Basic Metabolic Panel Today I10 - Essential (primary) hypertension, R19.7 - Diarrhea, unspecified Influenza [id number] Immunization Today Z23 - Encounter for immunization Medications: New amlodipine 10 mg PO DAILY 90 tabs 3RF Discontinued amlodipine Discontinued Reason: Doctor's Order 5 mg PO DAILY 90 tabs 3RF
[2025-04-03 16:01] VITALS: BP 120/82; PULSE 66; RESP 14; TEMP 36.6; O2SAT 99; BMI 24.5
--- OUTSIDE RECORDS SUMMARY | 2025-04-04 01:33 | XMS_ITS ---
Author Name [facility] Organization Unknown Care Team Organization Name Specialty Phone Email Start Date End Da te [facility] Ivan Davis DO Primary Care 03/04/202211/25
== END 2025-04-03 16:54 | disposition home or self-care (01) ==
LOC: HO.HMCFM 15:54
PROVIDERS: PCP Internal Medicine; Visit Provider Internal Medicine
DX: Z23 Encounter for immunization (principal)

== ENCOUNTER → 2025-04-03 15:54 | Outpatient (BNVA) | payer BC, SELFPAY | PROVIDERS: PCP Internal Medicine; Visit Provider Internal Medicine | DX: I10 Essential (primary) hypertension (principal); Z23 Encounter for immunization; Z86.0101 Personal history of adenomatous and serrated colon polyps; Z79.899 Other long term (current) drug therapy | CPT/HCPCS: 90471; 90656 ==